=== PATIENT | female | born 1940 | race Caucasian/White ===

== ENCOUNTER 2019-04-26 20:19 | Emergency (ER) | payer MEDICARE ==
--- OUTSIDE RECORDS SUMMARY | 2019-04-26 20:35 | XMS REPORT | Continuity of Care Document ---
:1940 External Reference #:[id number] Author Name Guera Gotti Care Team Providers Name Role Phone Dai Osborn MD Primary Care Physician Unavailable Payers Date Identification Numbers Payment Provider Subscriber Effective: 2012 Policy Number: [id number] Medicare Blue Ppo Mora Felix PayID: [id number] [address] [address] [place] [address] Effective: 2011 Policy Number: [id number] Medicare Blue Ppo Mora Felix Expires: 2012 Group Name: [employer] [address] [address] PayID: [id number] [place] [id number] Problems Active Problems Provider Date Type 2 diabetes mellitus Dai Osborn M.D. Onset: 12/01/2009 Benign essential hypertension Dai Osborn M.D. Onset: 12/01/2009 Hypothyroidism Dai Osborn M.D. Onset: 12/01/2009 Left bundle branch block Mei Tena M.D. Onset: 03/15/2014 Pure hypercholesterolemia Mei Tena M.D. Onset: 03/15/2014 FH: Cardiovascular disease Mei Tena M.D. Onset: 03/15/2014 Essential hypertension Dai Osborn M.D. Onset: 09/04/2015 Localized, primary osteoarthritis of the Erumcandelaria Smith M.D. Onset: 04/22/2017 pelvic region and thigh Family History Date Family Member(s) Observation Comments General Coronary Artery Disease (CAD) General Cerebrovascular Accident (CVA) Father Coronary Artery Disease (CAD) Known CAD, CABG, in sleep age 76. : (age 70 Father due to [place] Years) : (age 70 Mother due to Stroke HTN, OA Years) Mother Cerebrovascular Accident 2 CVA's 73 yo of (CVA) CVA. 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 Tobacco Use Start: Unknown Never Smoked Cigarettes ETOH Use Occasionally consumes less than once a alcohol week Tobacco Use Start: Unknown Patient has never smoked Recreational Drug Use Denies Drug Use Smoking Status Reviewed: 04/19/19 Patient has never smoked Exercise Type/Frequency Does not exercise Allergies, Adverse Reactions, Alerts Active Allergies Reaction Severity Comments Date Metformin diarrhea 01/19/2011 Inactive Allergies No Known Drug Allergy 08/06/2010 Medications Active Medications SIG Qnty Indications Ordering Provider Date Torsemide 1 tablet by mouth 30tabs R60.0 [employer], 04/19/2019 10mg Tablets every day M.D. Diabetic Shoes For daily use 1Pair E11.65 [employer], 07/10/2018 M.D. Amoxicillin 4 by mouth one 20caps [employer], 01/31/2018 500mg hour before M.D. Capsules procedure Metoprolol Succinate Take 1/2 by mouth 30tabs Z01.810 Checo Saenz, ER every day DO FACC 25mg Tablets ER 24HR Atorvastatin Calcium 1 by mouth every 90tabs Z01.810 Dai Cotton, day M.D. 40mg Tablets Roller Walker 1 rolling walker 1units M16.12 Erum Smith, 04/22/2017 [facility] M16.11 Levothyroxine Sodium Take One Tablet 90tabs [employer], 04/18/2017 125mcg By Mouth Every M.D. Tablets Day Repaglinide Take 1 Tablet By 270tabs E11.65 Dai Anurag, 01/24/2014 0.5mg Tablets Mouth Before M.D. Lunch And 2 Tablets AT Dinner Aspirin 1 tablet once Dai Anurag, 05/02/[address] daily M.D. Lisinopril Take One Tablet 90tabs [employer], 40mg Tablets By Mouth Every M.D. Day History Medications Pioglitazone HCL Take One 30tabs E11.65 Dai 07/10/2018 - 15mg Tablets Tablet By Regine Osborn 04/19/2019 Mouth Every Day Meloxicam 1 by mouth 14tabs M25.552 Erum Smith, 04/22/2017 - 15mg Tablets every day M.DRadhames 04/23/2017 Metronidazole apply two 45units [facility] 09/04/2015 - 0.75% Cream times a day as Regine Osborn 03/24/2016 needed for facial rash Simvastatin Take One 90tabs Z01.810 [facility] 05/23/2012 - 40mg Tablets Tablet By Regine Osborn 08/09/2017 Mouth AT Bedtime Prandin take 1 tablet 60tabs Dai 01/19/2011 - 0.5mg Tablets twice a day Regine Osborn 01/24/2014 before meals Metformin HCL 1/2 tablet 90tabs 250.00 Dai 12/11/2010 - 500mg Tablets once daily for Regine Osborn 01/19/2011 2 weeks then increase to whole tablet once daily Simvastatin Take [address] [facility] 08/07/2010 - 20mg Tablets By Mouth AT Regine Osborn 05/23/2012 Bedtime Levothyroxine Sodium Take One 90tabs Dai 03/31/2010 - 112mcg Tablet By Regine Osborn 04/18/2017 Tablets Mouth Every Day Lipitor 1 tablet once 90tabs 272.0 Dai - 10mg Tablets daily Regine Osborn 08/07/2010 Levothyroxine Sodium 1 tab PO daily Unknown - 125mcg 03/31/2010 Tablets Aspir-81 1 po qd Unknown - 81mg Tablets DR 05/02/2010 Fish Oil 1 po qd Unknown - 1000mg Capsules 07/28/2017 Ferrous Gluconate 1 by mouth Unknown - 324(37.5Fe) twice a day 07/10/2018 mg Tablets Hydrochlorothiazide Take One 90tabs R60.0 Dai - 25mg Tablet By Regine Osborn 04/19/2019 Tablets Mouth Every Day Medications Administered in Office Medication SIG Qnty Indications Ordering Provider Date Technetium TC 99M Ica Nuclear Schedule 07/21/2017 Tetrofosmin, Per Unit Dose Up To 40 Millicuries Injection Inj, Regadenoson, 0.1 MG Checo Saenz, DO FAC 07/19/2017 Injection Technetium TC 99M Checo Saenz, DO FAC 07/19/2017 Tetrofosmin, Per Unit Dose Up To 40 Millicuries Injection Inj, Regadenoson, 0.1 MG Lucas Westfall M.D., 04/01/2014 Injection FACC, FASNC Inj, Regadenoson, 0.1 MG Mei Tena M.D. 04/01/2014 Injection Technetium TC 99M Lucas Westfall M.D., 04/01/2014 Tetrofosmin, Per Unit Dose FAC, ROS Up To 40 Millicuries Injection Technetium TC 99M Mei Tena M.D. 04/01/2014 Tetrofosmin, Per Unit Dose Up To 40 Millicuries Injection Immunizations CPT Code Status Date Vaccine Lot # [id number] Given 07/10/2018 Influenza Virus Vaccine, Quadrivalent, Split, [id number] Preservative Free Q2035 Given 11/23/2017 Afluria Vaccine [id number] Given 08/18/2016 Flu Vaccine NOS 29586 Given 08/10/2016 Pneumococcal Conjugate Vaccine 13 Valent For [id number] Intramuscular Use 02233 Given 09/04/2015 Influenza Virus Vaccine, Quadrivalent, Split, [id number] Preservative Free 27682 Given 07/10/2014 Fluzone High Dose Q2038 Given 07/06/2012 Fluzone Vaccine [id number] 27772 Given 05/18/2011 Influenza Virus 3Yrs & Over 08658 Given 08/07/2010 Influenza Virus 3Yrs & Over 95386 Given 06/20/2009 Influenza Virus 3Yrs & Over 39890 Given 07/31/2008 Influenza Virus 3Yrs & Over 70693 Given 06/23/2006 Pneumonia Vaccine 96110 Given 06/23/2006 Tetanus And Diptheria (Td) For Adult Use Preservative Free 14522 Given 06/23/2006 Tetanus And Diptheria (Td) For Adult Use Preservative Free Vital Signs Date Vital Result Comment 04/19/2019 10:20am Height 62 inches 5'2" Weight 226.00 lb Heart Rate 60 /min BP Systolic 132 mmHg BP Diastolic 78 mmHg O2 % BldC Oximetry 96 % BMI (Body Mass Index) 41.3 kg/m2 08/31/2018 2:16pm Height 62 inches 5'2" Weight 222.12 lb Heart Rate 70 /min BP Systolic Sitting 132 mmHg BP Diastolic Sitting 80 mmHg Pain Level 0 O2 % BldC Oximetry 94 % BMI (Body Mass Index) 40.6 kg/m2 07/10/2018 10:06am Height 62 inches 5'2" Weight 216.00 lb Heart Rate 60 /min BP Systolic Sitting 135 mmHg BP Diastolic Sitting 64 mmHg O2 % BldC Oximetry 96 % BMI (Body Mass Index) 39.5 kg/m2 08/09/2017 10:22am Height 62 inches 5'2" Weight 209.00 lb with shoes Heart Rate 64 /min reg with ectopy BP Systolic 138 mmHg Rue lg cuff BP Diastolic 74 mmHg Rue lg cuff BP Systolic Sitting 128 mmHg Lue lg cuff BP Diastolic Sitting 74 mmHg Lue lg cuff BP Systolic Standing 130 mmHg Lue lg cuff BP Diastolic Standing 90 mmHg Lue lg cuff Respiratory Rate 16 /min BMI (Body Mass Index) 38.2 kg/m2 Ejection Fraction 50-55% date 06/09/16 ECHO 07/28/2017 10:42am Height 62.5 inches 5'2.50" Weight 208.50 lb Heart Rate 74 /min BP Systolic 126 mmHg BP Diastolic 66 mmHg Body Temperature 98.6 F O2 % BldC Oximetry 97 % BMI (Body Mass Index) 37.5 kg/m2 06/21/2017 1:06pm Height 62.5 inches 5'2.50" Weight 210.50 lb Heart Rate 59 /min BP Systolic 120 mmHg BP Diastolic 78 mmHg Body Temperature 98.0 F O2 % BldC Oximetry 99 % BMI (Body Mass Index) 37.9 kg/m2 04/22/2017 3:09pm Height 62.5 inches 5'2.50" Weight 214.00 lb Heart Rate 76 /min BP Systolic 120 mmHg BP Diastolic 76 mmHg Body Temperature 98.4 F BMI (Body Mass Index) 38.5 kg/m2 04/18/2017 3:09pm Height 62.5 inches 5'2.50" Weight 214.00 lb Heart Rate 64 /min BP Systolic 124 mmHg BP Diastolic 80 mmHg O2 % BldC Oximetry 97 % BMI (Body Mass Index) 38.5 kg/m2 08/10/2016 10:49am Heart Rate 66 /min BP Systolic Sitting 128 mmHg BP Diastolic Sitting 76 mmHg Respiratory Rate 15 /min Body Temperature 98.3 F O2 % BldC Oximetry 98 % 05/10/2016 11:39am Weight 214.00 lb Heart Rate 64 /min BP Systolic Sitting 126 mmHg BP Diastolic Sitting 80 mmHg Respiratory Rate 15 /min Body Temperature 98.6 F O2 % BldC Oximetry 98 % 09/04/2015 11:02am Height 62 inches 5'2" Weight 213.00 lb Heart Rate 62 /min BP Systolic Sitting 124 mmHg BP Diastolic Sitting 74 mmHg Respiratory Rate 14 /min Body Temperature 98.3 F O2 % BldC Oximetry 97 % BMI (Body Mass Index) 39.0 kg/m2 02/20/2015 10:50am Height 62 inches 5'2" Weight 206.00 lb Heart Rate 74 /min BP Systolic 138 mmHg BP Diastolic 68 mmHg Body Temperature 98.9 F BMI (Body Mass Index) 37.7 kg/m2 08/22/2014 10:24am Height 62 inches 5'2" Weight 207.75 lb Heart Rate 77 /min BP Systolic Sitting 138 mmHg BP Diastolic Sitting 70 mmHg Body Temperature 96.8 F O2 % BldC Oximetry 97 % BMI (Body Mass Index) 38.0 kg/m2 05/21/2014 4:04pm Weight 206.00 lb Heart Rate 66 /min BP Systolic Sitting 130 mmHg BP Diastolic Sitting 70 mmHg Body Temperature 97.9 F 04/17/2014 9:07am Height 62 inches 5'2" Weight 208.00 lb Heart Rate 72 /min BP Systolic Sitting 132 mmHg LA large cuff BP Diastolic Sitting 78 mmHg LA large cuff BP Systolic Standing 130 mmHg LA BP Diastolic Standing 82 mmHg LA Respiratory Rate 18 /min BMI (Body Mass Index) 38.0 kg/m2 03/15/2014 2:57pm Height 62 inches 5'2" Weight 209.00 lb Heart Rate 68 /min BP Systolic 144 mmHg Ra large cuff BP Diastolic 72 mmHg Ra large cuff BP Systolic Sitting 140 mmHg LA large cuff BP Diastolic Sitting 70 mmHg LA large cuff BP Systolic Standing 140 mmHg LA BP Diastolic Standing 72 mmHg LA Respiratory Rate 16 /min BMI (Body Mass Index) 38.2 kg/m2 02/15/2014 11:21am Height 62 inches 5'2" Weight 207.50 lb Heart Rate 72 /min BP Systolic 122 mmHg BP Diastolic 78 mmHg Respiratory Rate 18 /min Body Temperature 98.6 F BMI (Body Mass Index) 37.9 kg/m2 05/08/2013 1:16pm Weight 208.00 lb Heart Rate 64 /min BP Systolic Sitting 120 mmHg BP Diastolic Sitting 78 mmHg 11/07/2012 1:23pm Height 62 inches 5'2" Weight 207.00 lb Heart Rate 72 /min BP Systolic Sitting 128 mmHg BP Diastolic Sitting 76 mmHg BMI (Body Mass Index) 37.9 kg/m2 07/06/2012 10:42am Height 62 inches 5'2" Weight 205.00 lb Heart Rate 70 /min BP Systolic Sitting 128 mmHg BP Diastolic Sitting 76 mmHg BMI (Body Mass Index) 37.5 kg/m2 05/23/2012 11:22am Height 62 inches 5'2" Weight 206.00 lb Heart Rate 68 /min BP Systolic Sitting 128 mmHg BP Diastolic Sitting 80 mmHg BMI (Body Mass Index) 37.7 kg/m2 10/05/2011 10:37am Height 62 inches 5'2" Weight 209.00 lb Heart Rate 70 /min BP Systolic Sitting 128 mmHg BP Diastolic Sitting 74 mmHg BMI (Body Mass Index) 38.2 kg/m2 07/05/2011 10:05am Height 62 inches 5'2" Weight 208.00 lb Heart Rate 68 /min BP Systolic Sitting 132 mmHg BP Diastolic Sitting 84 mmHg BMI (Body Mass Index) 38.0 kg/m2 04/01/2011 11:48am Height 62 inches 5'2" Weight 206.50 lb Heart Rate 68 /min BP Systolic 142 mmHg BP Diastolic 78 mmHg BMI (Body Mass Index) 37.8 kg/m2 12/11/2010 10:19am Weight 204.50 lb Heart Rate 68 /min BP Systolic 124 mmHg BP Diastolic 74 mmHg 08/07/2010 9:28am Weight 206.50 lb Heart Rate 62 /min BP Systolic 124 mmHg BP Diastolic 80 mmHg 05/05/2010 7:06pm Weight 200.50 lb Heart Rate 60 /min BP Systolic 144 mmHg BP Diastolic 78 mmHg Results Test Date Facility Test Result H/L Range Note Laboratory test 04/19/2019 [facility] Hemoglobin A1c 7.0 5-7 finding Order 04/19/2019 [facility] In-House EKG <pending> Lipid Profile 07/05/2018 [facility] Triglycerides 199 mg/dL 1 (Trig/Chol/HDL) [address] [place] [address] [phone] Cholesterol 155 mg/dL 2 HDL Cholesterol 34.1 mg/dL 3 LDL Cholesterol 81 mg/dL 4 Comp Metabolic Panel 07/05/2018 [facility] Sodium 139 mmol/L N 135-[address] [place] [address] [phone] Potassium 4.6 mmol/L N 3.5-5.0 Chloride 104 mmol/L N 101-111 Co2 Carbon Dioxide 25 mmol/L N 22-32 Anion Gap 10 mmol/L N 2-11 Calcium 9.3 mg/dL N 8.6-10.3 Albumin 4.1 g/dL N 3.2-5.2 Total Bilirubin 0.60 mg/dL N 0.2-1.0 Glucose 199 mg/dL High 70-100 Blood Urea Nitrogen 36 mg/dL High 6-24 Creatinine 1.19 mg/dL High 0.51-0.95 BUN/Creatinine Ratio 30.3 High 8-20 Total Protein 6.7 g/dL N 6.4-8.9 Globulin 2.6 g/dL N 2-4 Albumin/Globulin Ratio 1.6 N 1-3 Alkaline Phosphatase 92 U/L N 34-104 Alt 17 U/L N 7-52 Ast 19 U/L N 13-39 Egfr Non- 43.9 >60 Egfr 53.1 >60 5 Laboratory test 07/05/2018 [facility] Hemoglobin A1c 8.7 % High 4.0-5.[address] (Glyco HGB) [place] [address] [phone] Urine 07/05/2018 [facility] Ur Microalbumin < 15.[address] (mg/L) [place] [address] [phone] Urine Creatinine 35.03 mg/dL Urine Microalbumin/Creatinine TNP <31 7 CBC Auto Diff 07/05/2018 [facility] White Blood 6.4 10^3/uL N 3.5-10.[address] [place] [address] [phone] Red Blood Count 3.97 10^6/uL Low 4.00-5.40 Hemoglobin 12.1 g/dL N 12.0-16.0 Hematocrit 37 % N 35-47 Mean Corpuscular Volume 92 fL N 80-97 Mean Corpuscular Hemoglobin 31 pg N 27-31 Mean Corpuscular HGB Conc 33 g/dL N 31-36 Red Cell Distribution Width 14 % N 10.5-15 Platelet Count 282 10^3/uL N 150-450 Mean Platelet Volume 8.0 um3 N 7.4-10.4 Abs Neutrophils 3.8 10^3/uL N 1.5-7.7 Abs Lymphocytes 1.6 10^3/uL N 1.0-4.8 Abs Monocytes 0.7 10^3/uL N 0-0.8 Abs Eosinophils 0.3 10^3/uL N 0-0.6 Abs Basophils 0 10^3/uL N 0-0.2 Abs Nucleated RBC 0 10^3/uL Granulocyte % 59.2 % N 38-83 Lymphocyte % 24.7 % Low 25-47 Monocyte % 10.2 % High 0-7 Eosinophil % 5.3 % N 0-6 Basophil % 0.6 % N 0-2 Nucleated Red Blood Cells % 0.1 Arthritis Panel 07/05/2018 [facility] Uric Acid 10.4 mg/dL High 2.3-6.[address] [place] [address] [phone] Rheumatoid Factor < 10 IU/mL N <15 Erythrocyte Sed Rate 47 mm/Hr High 0-40 Anti-Nuclear Antibody 0.5 U 8 Cyclic Citrullinated Peptide <15.6 U 9 Interpretation See Comment 10 Laboratory test 07/05/2018 [facility] Cyclic Citrullinated < 15.6 U [address] [place] [address] [phone] C Reactive Protein 7.28 mg/L N <8.01 12 TSH (Thyroid Stim Horm) 2.73 mcIU/mL N 0.34-5.60 13 Protein 07/21/2017 [facility] Total 7.4 g/dL N 6.3 - Electrophoresis [address] Protein(Pep) 7.9 [place] [address] [phone] Albumin 3.4 g/dL N 3.4-4.7 Alpha-1 Globulin 0.3 g/dL N 0.1-0.3 Alpha-2 Globulin 1.3 g/dL Abnormal 0.6-1.0 Beta Globulin 1.2 g/dL N 0.7-1.2 Gamma Globulin 1.3 g/dL N 0.6-1.6 Albumin/Globulin Ratio 0.84 N Impression See Comment N 14 Laboratory test finding 07/21/2017 [facility] LDH 195 U/L N 140-[address] [place] [address] [phone] C Reactive Protein 9.99 mg/L High < 5.00 15 Folic Acid (Folate) 12.55 ng/mL N >3.99 Vitamin B12 314 pg/mL N 180-914 16 Hemoglobin A1c (Glyco HGB) 7.7 % High Less than 6.0 17 Comp Metabolic Panel 07/21/2017 [facility] Sodium 138 mmol/L N 133-[address] [place] [address] [phone] Chloride 102 mmol/L N 101-111 Co2 Carbon Dioxide 26 mmol/L N 22-32 Glucose 189 mg/dL High 70-100 Blood Urea Nitrogen 41 mg/dL High 6-24 Creatinine 1.55 mg/dL High 0.51-0.95 BUN/Creatinine Ratio 26.5 High 8-20 Calcium 9.3 mg/dL N 8.6-10.3 Total Protein 7.2 g/dL N 6.4-8.9 Albumin 4.0 g/dL N 3.2-5.2 Globulin 3.2 g/dL N 2-4 Albumin/Globulin Ratio 1.3 N 1-3 Total Bilirubin 0.50 mg/dL N 0.2-1.0 Alkaline Phosphatase 68 U/L N 34-104 Alt 10 U/L N 7-52 Ast 12 U/L Low 13-39 Egfr Non- 32.4 N >60 Egfr 41.7 N >60 18 Potassium 5.2 mmol/L High 3.5-5.0 Anion Gap 10 mmol/L N 2-11 Laboratory test 07/21/2017 [facility] TSH (Thyroid 2.79 mcIU/mL N 0.34-5.[address] Stim Horm) [place] [address] [phone] Laboratory test 07/05/2017 [facility] Ferritin 167.4 ng/mL N 11-307 [address] [place] [address] [phone] Iron & Iron 07/05/2017 [facility] Iron 53 g/dL N 50-[address] [place] [address] [phone] Unsaturated Iron Binding 301 g/dL N Total Iron Binding Capacity 354 g/dL N 250-450 % Iron Saturation 15 % N 15-55 Laboratory test 07/05/2017 [facility] Albumin 3.9 g/dL N 3.2- 5.[address] [place] [address] [phone] CBC Auto Diff 07/05/2017 [facility] White Blood 7.0 N 3.5- 10.[address] Count 10^3/[place] [address] [phone] Red Blood Count 3.72 10^6/uL Low 4.0-5.4 Hemoglobin 11.0 g/dL Low 12.0-16.0 Hematocrit 34 % Low 35-47 Mean Corpuscular Volume 91 fL N 80-97 Mean Corpuscular Hemoglobin 30 pg N 27-31 Mean Corpuscular HGB Conc 33 g/dL N 31-36 Red Cell Distribution Width 14 % N 10.5-15 Platelet Count 294 10^3/uL N 150-450 Mean Platelet Volume 8 um3 N 7.4-10.4 Abs Neutrophils 4.7 10^3/uL N 1.5-7.7 Abs Lymphocytes 1.3 10^3/uL N 1.0-4.8 Abs Monocytes 0.5 10^3/uL N 0-0.8 Abs Eosinophils 0.5 10^3/uL N 0-0.6 Abs Basophils 0.1 10^3/uL N 0-0.2 Abs Nucleated RBC 0 10^3/uL N Granulocyte % 67.1 % N 38-83 Lymphocyte % 19.2 % Low 25-47 Monocyte % 6.5 % N 1-9 Eosinophil % 6.5 % High 0-6 Basophil % 0.7 % N 0-2 Nucleated Red Blood Cells % 0 N Laboratory test 04/15/2017 [facility] TSH (Thyroid 7.19 High 0.34-5.[address] Stim Horm) mcIU/[place] [address] [phone] Urine 04/15/2017 [facility] Urine 44.99 N Microalbumin [address] Creatinine mg/dL Random [place], [place] [id number] [phone] Ur Microalbumin (mg/L) < 15.0 mg/L N Urine Microalbumin/Creatinine TNP ug/mg N <31 21 Laboratory test 04/15/2017 [facility] Hemoglobin A1c 8.1 % High Less than [address] (Glyco HGB) 6.0 [place] [address] [phone] Comp Metabolic 04/15/2017 [facility] Sodium 136 N 133-[address] mmol/[place] [address] [phone] Potassium 4.8 mmol/L N 3.5-5.0 Chloride 103 mmol/L N 101-111 Co2 Carbon Dioxide 23 mmol/L N 22-32 Anion Gap 10 mmol/L N 2-11 Glucose 181 mg/dL High 70-100 Blood Urea Nitrogen 42 mg/dL High 6-24 Creatinine 1.32 mg/dL High 0.51-0.95 BUN/Creatinine Ratio 31.8 High 8-20 Calcium 8.9 mg/dL N 8.6-10.3 Total Protein 6.4 g/dL N 6.4-8.9 Albumin 4.0 g/dL N 3.2-5.2 Globulin 2.4 g/dL N 2-4 Albumin/Globulin Ratio 1.7 N 1-3 Total Bilirubin 0.60 mg/dL N 0.2-1.0 Alkaline Phosphatase 69 U/L N 34-104 Alt 13 U/L N 7-52 Ast 13 U/L N 13-39 Egfr Non- 39.1 N >60 Egfr 50.3 N >60 23 Lipid Profile 04/15/2017 [facility] Triglycerides 248 mg/dL N 24 (Trig/Chol/HDL) [address] [place] [address] [phone] Cholesterol 164 mg/dL N 25 HDL Cholesterol 36.1 mg/dL N 26 LDL Cholesterol 78 mg/dL N 27 Laboratory test 08/10/2016 [facility] Hemoglobin A1c 7.5 High 5-7 finding Comp Metabolic 05/05/2016 [facility] Sodium 136 mmol/L N 133- [address] [place] [address] [phone] Potassium 4.9 mmol/L N 3.5-5.0 Chloride 104 mmol/L N 101-111 Co2 Carbon Dioxide 25 mmol/L N 22-32 Anion Gap 7 mmol/L N 2-11 Glucose 160 mg/dL High 70-100 Blood Urea Nitrogen 42 mg/dL High 6-24 Creatinine 1.34 mg/dL High 0.51-0.95 BUN/Creatinine Ratio 31.3 High 8-20 Calcium 8.9 mg/dL N 8.6-10.3 Total Protein 6.6 g/dL N 6.4-8.9 Albumin 4.1 g/dL N 3.2-5.2 Globulin 2.5 g/dL N 2-4 Albumin/Globulin Ratio 1.6 N 1-3 Total Bilirubin 0.50 mg/dL N 0.2-1.0 Alkaline Phosphatase 63 U/L N 34-104 Alt 15 U/L N 7-52 Ast 15 U/L N 13-39 Egfr Non- 38.5 N >60 Egfr 49.5 N >60 28 Lipid Profile 05/05/2016 [facility] Triglycerides 262 mg/dL N 29 (Trig/Chol/HDL) [address] [place] [address] [phone] Cholesterol 171 mg/dL N 30 HDL Cholesterol 32.2 mg/dL N 31 LDL Cholesterol 86 mg/dL N 32 Laboratory test 05/05/2016 [facility] Hemoglobin A1c 7.7 % High Less [address] (Glyco HGB) than 6.[address] [place] [address] [phone] Urine 09/01/2015 [facility] Ur Microalbumin < 5.0 N Microalbumin [address] (mg/L) mg/[place] [address] [phone] Urine Creatinine 23.46 mg/dL N Urine Microalbumin/Creatinine TNP ug/mg N <31 34 Laboratory test 09/01/2015 [facility] Hemoglobin A1c 7.0 % High Less than [address] (Glyco HGB) 6.[address] [place] [address] [phone] TSH (Thyroid Stim Horm) 2.58 ?IU/mL N 0.34-5.60 Comp Metabolic Panel 09/01/2015 [facility] Sodium 135 mmol/L N 133-[address] [place] [address] [phone] Potassium 4.3 mmol/L N 3.5-5.0 Chloride 103 mmol/L N 101-111 Co2 Carbon Dioxide 24 mmol/L N 22-32 Anion Gap 8 mmol/L N 2-11 Glucose 123 mg/dL High 70-100 Blood Urea Nitrogen 43 mg/dL High 6-24 Creatinine 1.32 mg/dL High 0.51-0.95 BUN/Creatinine Ratio 32.6 High 8-20 Calcium 9.2 mg/dL N 8.6-10.3 Total Protein 6.7 g/dL N 6.4-8.9 Albumin 4.3 g/dL N 3.2-5.2 Globulin 2.4 g/dL N 2-4 Albumin/Globulin Ratio 1.8 N 1-3 Total Bilirubin 0.50 mg/dL N 0.2-1.0 Alkaline Phosphatase 64 U/L N 34-104 Alt 12 U/L N 7-52 Ast 13 U/L N 13-39 Egfr Non- 39.2 N >60 Egfr 50.5 N >60 36 Total Protein 24HR Urine 02/17/2015 Urine Random Total Protein < 6 mg/dL N 37 Urine Total Protein/24HR (SEE NOTE) mg/24Hr N 0-165 38 Urine Collection Time 24 N Urine Total Volume 1500 mL N Creatinine Clearance 02/17/2015 Urine Random Creatinine 91.41 mg/dL N Creatinine 1.20 mg/dL High 0.51-0.95 Creatinine Clearance 79 mL/min Low 88-128 Urine Collection Time 24 N Urine Total Volume 1500 mL N Lipid Profile 02/14/2015 [facility] Triglycerides 227 mg/dL N 39, 40 (Trig/Chol/HDL) [address] [place] [address] [phone] Cholesterol 184 mg/dL N 41 HDL Cholesterol 41.7 mg/dL N 42 LDL Cholesterol 97 mg/dL N 43 Laboratory test 02/14/2015 [facility] Hemoglobin A1c 7.3 % High Less than [address] 6[address] [place] [address] [phone] Comp Metabolic 02/14/2015 [facility] Sodium 136 N 133-[address] mmol/[place] [address] [phone] Potassium 4.3 mmol/L N 3.5-5.0 Chloride 101 mmol/L N 101-111 Co2 Carbon Dioxide 28 mmol/L N 22-32 Anion Gap 7 mmol/L N 2-11 Glucose 157 mg/dL High 70-100 Blood Urea Nitrogen 25 mg/dL High 6-24 Creatinine 1.16 mg/dL High 0.51-0.95 BUN/Creatinine Ratio 21.6 High 8-20 Calcium 9.2 mg/dL N 8.6-10.3 Total Protein 6.7 g/dL N 6.4-8.9 Albumin 4.4 g/dL N 3.2-5.2 Globulin 2.3 g/dL N 2-4 Albumin/Globulin Ratio 1.9 N 1-3 Total Bilirubin 0.60 mg/dL N 0.2-1.0 Alkaline Phosphatase 64 U/L N 34-104 Alt 12 U/L N 7-52 Ast 13 U/L N 13-39 Egfr Non- 45.7 N >60 Egfr 58.7 N >60 45 Laboratory test 08/22/2014 [facility] Hemoglobin A1c 6.4 5-7 finding Order 04/01/2014 [facility] Stress Test, <pending> Pharmacologic Nuclear (Lexiscan) Laboratory test 02/11/2014 [facility] TSH (Thyroid 1.70 N 0.34 -5.[address] Stimulating Horm) IU/[place] [address] [phone] Urine Microalbumin 02/11/2014 [facility] Ur Microalbumin 5.0 mg/ dL N <30 [address] (mg/L) [place] [address] [phone] Urine Creatinine 22.91 mg/dL N Urine Microalbumin/Creatinine 21.8 N Less Than 31 Comp Metabolic Panel 02/11/2014 [facility] Sodium 138 mmol/L N 133-[address] [place] [address] [phone] Potassium 4.4 mmol/L N 3.7-5.6 Chloride 104 mmol/L N 101-111 Co2 Carbon Dioxide 27 mmol/L N 22-32 Anion Gap 7 mmol/L N 2-11 Glucose 143 mg/dL High 70-100 Blood Urea Nitrogen 40 mg/dL High 6-24 Creatinine 1.42 mg/dL High 0.51-0.95 BUN/Creatinine Ratio 28.2 High 8-20 Calcium 8.8 mg/dL N 8.6-10.3 Total Protein 6.6 g/dL N 6.4-8.9 Albumin 4.2 g/dL N 3.2-5.2 Globulin 2.4 g/dL N 2-4 Albumin/Globulin Ratio 1.8 N 1-3 Total Bilirubin 0.50 mg/dL N 0.2-1.0 Alkaline Phosphatase 69 U/L N 34-104 Alt 11 U/L N 7-52 Ast 12 U/L Low 13-39 Egfr Non- 36.3 N >60 Egfr 46.6 N >60 47 Lipid Profile 02/11/2014 [facility] Triglycerides 181 mg/dL N 48 (Trig/Chol/HDL) [address] [place] [address] [phone] Cholesterol 144 mg/dL N 49 HDL Cholesterol 34.7 mg/dL N 50 LDL Cholesterol 73 mg/dL N 51 Laboratory test 02/11/2014 [facility] Hemoglobin A1c 6.5 % High Less than [address] [place] [address] [phone] Lipid Profile 05/03/2013 [facility] Triglycerides 263 High 40- 200 (Trig/Chol/HDL) [address] mg/[place] [address] [phone] Cholesterol 160 mg/dL Less than 200 HDL Cholesterol 37 mg/dL Low 40-60 53 Cholesterol/HDL Ratio 4.3 Average 1-4.44 LDL Cholesterol 70.4 Less Than 100 54 Comp Metabolic Panel 05/03/2013 [facility] Sodium 137 mmol/L 133-[address] [place] [address] [phone] Potassium 4.8 mmol/L 3.5-5.0 Chloride 103 mmol/L 101-111 Co2 Carbon Dioxide 26.0 mmol/L 22-32 Anion Gap 8.0 mmol/L 2-11 Glucose 139 mg/dL High 70-100 Blood Urea Nitrogen 34 mg/dL High 6-24 Creatinine 1.30 mg/dL 0.50-1.40 BUN/Creatinine Ratio 26.2 High 8-20 Calcium 9.0 mg/dL 8.1-9.9 Total Protein 6.4 g/dL 6.2-8.1 Albumin 3.9 g/dL 3.2-5.2 Globulin 2.5 g/dL 2-4 Albumin/Globulin Ratio 1.6 1-3 Total Bilirubin 0.8 mg/dL 0.4-1.5 Alkaline Phosphatase 67 U/L 30-110 Alt 18 U/L 14-54 Ast 18 U/L 12-42 Egfr Non- 40.2 >60 Egfr 51.6 >60 55 Laboratory test 05/03/2013 [facility] Hemoglobin A1c 6.7 % High Less [address] [place] [address] [phone] Urine 05/03/2013 [facility] Ur Microalbumin 2.0 [address] (mg/L) mg/[place] [address] [phone] Urine Creatinine 56.5 mg/dL Urine Microalbumin/Creatinine 3.5 Less Than 31 Laboratory test 11/07/2012 [facility] In House Hemoglobin A1c 6.7 5-7 finding Lipid Profile 07/04/2012 [facility] Triglyceride 268 mg/dL High 40-200 (Trig/Chol/HDL) [address] [place] [address] [phone] Cholesterol 176 mg/dL Less Than 200 58 High Density Lipoprotein 37 mg/dL Low 40-60 59 Cholesterol/HDL Ratio 4.76 AVERAGE High 1-4.44 Low Density Lipoprotein 85 mg/dL Less Than 100 60 Laboratory test finding 07/04/2012 [facility] Ast (Sgot) 24 U/L 12-[address] [place] [address] [phone] Alt (SGPT) 24 U/L 14-54 TSH 0.56 MIU/ML 0.34-5.60 Urine Microalbumin 05/19/2012 [facility] Microalbumin (MG/L) 2.0 mg/L Random [address] [place] [address] [phone] Urine Creatinine 51.2 mg/dL Dennis Alb/Creatinine Ratio 3.9 UG/MG Less Than 30 61 Lipid Panel 05/19/2012 [facility] Triglyceride 285 mg/dL High 40-[address] [place] [address] [phone] Cholesterol 195 mg/dL Less Than 200 62 High Density Lipoprotein 37 mg/dL Low 40-60 63 Cholesterol/HDL Ratio 5.27 AVERAGE High 1-4.44 Low Density Lipoprotein 101 mg/dL High Less Than 100 64 CMP Panel 05/19/2012 [facility] Sodium 138 mmol/L 135-[address] [place] [address] [phone] Potassium 4.4 mmol/L 3.5-5.0 Chloride 105 mmol/L 101-111 Co2 (Carbon Dioxide) 26.0 mmol/L 22-32 Anion Gap 7.0 mmol/L 2-11 65 Glucose 131 mg/dL High 70-100 BUN 27 mg/dL High 6-24 Creatinine 1.4 mg/dL 0.50-1.40 One Over Creatinine 0.71 BUN/Creatinine Ratio 19.3 8-20 Calcium 9.0 mg/dL 8.1-9.9 Total Protein 5.9 GM/DL Low 6.2-8.1 Albumin 3.8 GM/DL 3.2-5.2 Globulin 2.1 GM/DL 2-4 Albumin/Globulin Ratio 1.8 1-3 Bilirubin Total 0.8 mg/dL 0.4-1.5 66 Alkaline Phosphatase 73 U/L 30-110 Alt (SGPT) 20 U/L 14-54 Ast (Sgot) 21 U/L 12-42 eGFR Non- 37.0 > 60 eGFR 47.5 > 60 67 Laboratory test 05/19/2012 [facility] Hemoglobin A1c 6.5 % High Less Than [address] [place] [address] [phone] Laboratory test 09/27/2011 [facility] Hemoglobin A1c 6.7 % High Less Than [address] [place] [address] [phone] Comp Metabolic 09/27/2011 [facility] Sodium 139 135-[address] mmol/[place] [address] [phone] Potassium 4.4 mmol/L 3.5-5.0 Chloride 106 mmol/L 101-111 Co2 (Carbon Dioxide) 26.0 mmol/L 22-32 Anion Gap 7.0 mmol/L 2-11 70 Glucose 167 mg/dL High 70-100 BUN 30 mg/dL High 6-24 Creatinine 1.2 mg/dL 0.50-1.40 One Over Creatinine 0.83 BUN/Creatinine Ratio 25.0 High 8-20 Calcium 9.0 mg/dL 8.1-9.9 Total Protein 6.3 GM/DL 6.2-8.1 Albumin 4.0 GM/DL 3.2-5.2 Globulin 2.3 GM/DL 2-4 Albumin/Globulin Ratio 1.7 1-3 Bilirubin Total 0.6 mg/dL 0.4-1.5 71 Alkaline Phosphatase 80 U/L 30-110 Alt (SGPT) 19 U/L 14-54 Ast (Sgot) 21 U/L 12-42 eGFR Non- 44.3 > 60 eGFR 57.0 > 60 72 Surgical 08/12/2011 [facility] Surgical [address] Pathology <SEE NOTE> [place] [address] [phone] Basic 05/25/2011 [facility] Sodium 139 mmol/L 135- Metabolic [address] [place] [address] [phone] Potassium 4.5 mmol/L 3.5-5.0 Chloride 105 mmol/L 101-111 Co2 (Carbon Dioxide) 26.0 mmol/L 22-32 Anion Gap 8.0 mmol/L 2-11 74 Glucose 91 mg/dL 70-100 BUN 28 mg/dL High 6-24 Creatinine 1.10 mg/dL 0.50-1.40 One Over Creatinine 0.90 BUN/Creatinine Ratio 25.5 High 8-20 Calcium 9.1 mg/dL 8.1-9.9 eGFR Non- 49.0 > 60 eGFR 63.0 > 60 75 Urine Microalbumin 03/30/2011 [facility] Microalbumin (MG/L) 2.0 mg/L Random [address] [place] [address] [phone] Urine Creatinine 31.44 mg/dL Dennis Alb/Creatinine Ratio 6.3 UG/MG Less Than 30 76 Laboratory test 03/30/2011 [facility] Creatinine 31.44 mg/dL finding [address] [place] [place] [address] [phone] Comp Metabolic 03/29/2011 [facility] Sodium 141 mmol/L 135- [address] [place] [address] [phone] Potassium 4.6 mmol/L 3.5-5.0 Chloride 108 mmol/L 101-111 Co2 (Carbon Dioxide) 26.0 mmol/L 22-32 Anion Gap 7.0 mmol/L 2-11 77 Glucose 146 mg/dL High 70-100 BUN 32 mg/dL High 6-24 Creatinine 1.50 mg/dL High 0.50-1.40 One Over Creatinine 0.60 BUN/Creatinine Ratio 21.3 High 8-20 Calcium 8.9 mg/dL 8.1-9.9 Total Protein 6.4 GM/DL 6.2-8.1 Albumin 3.9 GM/DL 3.2-5.2 Globulin 2.5 GM/DL 2-4 Albumin/Globulin Ratio 1.6 1-3 Bilirubin Total 0.7 mg/dL 0.4-1.5 78 Alkaline Phosphatase 67 U/L 30-110 Alt (SGPT) 18 U/L 14-54 Ast (Sgot) 22 U/L 12-42 eGFR Non- 34.3 > 60 eGFR 44.1 > 60 79 Lipid Profile 03/29/2011 [facility] Triglyceride 203 mg/dL High 40-200 (Trig/Chol/HDL) [address] [place] [address] [phone] Cholesterol 176 mg/dL Less Than 200 80 High Density Lipoprotein 36 mg/dL Low 40-60 81 Cholesterol/HDL Ratio 4.89 AVERAGE High 1-4.44 Low Density Lipoprotein 99 mg/dL Less Than 100 82 Laboratory test 03/29/2011 [facility] TSH 2.38 MIU/ML 0.34- 5.[address] [place] [address] [phone] Hemoglobin A1c 6.6 % High Less Than 6.0 83 Comp Metabolic Panel 12/07/2010 [facility] Sodium 141 mmol/L 135-[address] [place] [address] [phone] Potassium 4.9 mmol/L 3.5-5.0 Chloride 103 mmol/L 101-111 Co2 (Carbon Dioxide) 30.0 mmol/L 22-32 Anion Gap 8.0 mmol/L 2-11 84 Glucose 143 mg/dL High 70-100 BUN 31 mg/dL High 6-24 Creatinine 1.30 mg/dL 0.50-1.40 One Over Creatinine 0.70 BUN/Creatinine Ratio 23.8 High 8-20 Calcium 9.1 mg/dL 8.1-9.9 Total Protein 6.8 GM/DL 6.2-8.1 Albumin 4.1 GM/DL 3.2-5.2 Globulin 2.7 GM/DL 2-4 Albumin/Globulin Ratio 1.5 1-3 Bilirubin Total 0.8 mg/dL 0.4-1.5 85 Alkaline Phosphatase 75 U/L 30-110 Alt (SGPT) 21 U/L 14-54 Ast (Sgot) 20 U/L 12-42 eGFR Non- 40.5 > 60 eGFR 52.1 > 60 86 Lipid Profile 12/07/2010 [facility] Triglyceride 239 mg/dL High 40-200 (Trig/Chol/HDL) [address] [place] [address] [phone] Cholesterol 163 mg/dL Less Than 200 87 High Density Lipoprotein 38 mg/dL Low 40-60 88 Cholesterol/HDL Ratio 4.29 AVERAGE 1-4.44 Low Density Lipoprotein 77 mg/dL Less Than 100 89 Laboratory test 12/07/2010 [facility] Hemoglobin A1c 7.0 % High Less [address] [place] [address] [phone] Laboratory test 07/31/2010 [facility] Hemoglobin A1c 7.0 % High Less [address] [place] [address] [phone] Urine 2010 [facility] Microalbumin < 2.[address] (MG/L) mg/[place] [address] [phone] Urine Creatinine 77.17 mg/dL 92 Laboratory test 2010 [facility] Hemoglobin A1c 7.0 % High Less Than [address] [place] [address] [phone] Lipid Profile 2010 [facility] Triglyceride 253 High 40- 200 (Trig/Chol/HDL) [address] mg/[place] [address] [phone] Cholesterol 194 mg/dL Less Than 200 94 High Density Lipoprotein 33 mg/dL Low 40-60 95 Cholesterol/HDL Ratio 5.88 AVERAGE High 1-4.44 Low Density Lipoprotein 110 mg/dL High Less Than 100 96 Comp Metabolic Panel 2010 [facility] Sodium 139 mmol/L 135-[address] [place] [address] [phone] Potassium 4.6 mmol/L 3.5-5.0 Chloride 103 mmol/L 101-111 Co2 (Carbon Dioxide) 29.0 mmol/L 22-32 Anion Gap 7.0 mmol/L 2-11 97 Glucose 144 mg/dL High 70-100 98 BUN 22 mg/dL 6-24 Creatinine 1.10 mg/dL 0.50-1.40 One Over Creatinine 0.90 BUN/Creatinine Ratio 20.0 8-20 Calcium 9.5 mg/dL 8.1-9.9 99 Total Protein 6.7 GM/DL 6.2-8.1 Albumin 4.0 GM/DL 3.2-5.2 Globulin 2.7 GM/DL 2-4 Albumin/Globulin Ratio 1.5 1-3 Bilirubin Total 1.1 mg/dL 0.4-1.5 100 Alkaline Phosphatase 84 U/L 30-110 Alt (SGPT) 21 U/L 14-54 Ast (Sgot) 22 U/L 12-42 eGFR Non- 52.2 > 60 eGFR 63.1 > 60 101 1 Desirable: <150 Borderline High: 150-199 High: 200-499 Very High: >500 2 Desirable: <200 Borderline High: 200-239 High: >239 3 Low: <40 Desirable: 40-60 High: >60 4 Desirable: <100 Near Optimal: 100-129 Borderline High: 130-159 High: 160-189 Very High: >189 5 Because ethnic data is not always readily available, this report includes an eGFR for both -Americans and non- Americans. The National Kidney Disease Education Program (NKDEP) does not endorse the use of the MDRD equation for patients that are not between the ages of 18 and 70, are , have extremes of body size, muscle mass, or nutritional status, or are non- or non-. According to the National Kidney Foundation, irrespective of diagnosis, the stage of the disease is based on the level of kidney function: Stage Description GFR(mL/min/1.73 m(2)) 1 Kidney damage with normal or decreased GFR 90 2 Kidney damage with mild decrease in GFR 60-89 3 Moderate decrease in GFR 30-59 4 Severe decrease in GFR 15-29 5 Kidney failure <15 (or dialysis) 6 Therapeutic target for the treatment of diabetes mellitus patients is <7% HBA1C, and in selective patients <6.0%. Please refer to [place] [employer] diabetic care guidelines for further information. 7 Unable to calculate due to low microalbumin 8 REFERENCE VALUE <=1.0 (Negative) 9 REFERENCE VALUE <20.0 (Negative) 10 Tests for antibodies to dsDNA and ERIN antigens are not performed automatically unless the JESSENIA result is > or= 3.0 U. Studies performed at [facility] indicate that positive JESSENIA results <3.0 U are rarely accompanied by positive second order tests. Test Performed by: [address] [address] 11 REFERENCE VALUE <20.0 (Negative) Test Performed by: [address] [address] 12 FASTING 10 HOUR 13 FASTING 10 HOUR 14 RESULT: No apparent monoclonal protein on serum electrophoresis. Test Performed by: [address] [address] 15 Acute inflammation: >10.00 16 Normal Range 180 to 914 Indeterminate Range 145 to 180 Deficient Range <145 17 Therapeutic target for the treatment of diabetes Mellitus patients is <7% HBA1C, and in selective patients <6.0%.Please refer to [place] [employer] Diabetic care guidelines for further information. 18 Because ethnic data is not always readily available, this report includes an eGFR for both -Americans and non- Americans. The National Kidney Disease Education Program (NKDEP) does not endorse the use of the MDRD equation for patients that are not between the ages of 18 and 70, are , have extremes of body size, muscle mass, or nutritional status, or are non- or non-. According to the National Kidney Foundation, irrespective of diagnosis, the stage of the disease is based on the level of kidney function: Stage Description GFR(mL/min/1.73 m(2)) 1 Kidney damage with normal or decreased GFR 90 2 Kidney damage with mild decrease in GFR 60-89 3 Moderate decrease in GFR 30-59 4 Severe decrease in GFR 15-29 5 Kidney failure <15 (or dialysis) 19 CANCEL HA1C PER PT 20 CANCEL HA1C PER PT 21 Unable to calculate due to low microalbumin 22 Therapeutic target for the treatment of diabetes Mellitus patients is <7% HBA1C, and in selective patients <6.0%.Please refer to [place] [employer] Diabetic care guidelines for further information. 23 Because ethnic data is not always readily available, this report includes an eGFR for both -Americans and non- Americans. The National Kidney Disease Education Program (NKDEP) does not endorse the use of the MDRD equation for patients that are not between the ages of 18 and 70, are , have extremes of body size, muscle mass, or nutritional status, or are non- or non-. According to the National Kidney Foundation, irrespective of diagnosis, the stage of the disease is based on the level of kidney function: Stage Description GFR(mL/min/1.73 m(2)) 1 Kidney damage with normal or decreased GFR 90 2 Kidney damage with mild decrease in GFR 60-89 3 Moderate decrease in GFR 30-59 4 Severe decrease in GFR 15-29 5 Kidney failure <15 (or dialysis) 24 Desirable <150 Borderline high 150-199 High 200-499 Very High >500 25 Desirable <200 Borderline high 200-239 High >239 26 Low <40 Desirable: 40-60 High: >60 27 Desirable: <100 mg/dL Near Optimal: 100-129 mg/dL Borderline High: 130-159 mg/dL High: 160-189 mg/dL Very High: >189 mg/dL 28 Because ethnic data is not always readily available, this report includes an eGFR for both -Americans and non- Americans. The National Kidney Disease Education Program (NKDEP) does not endorse the use of the MDRD equation for patients that are not between the ages of 18 and 70, are , have extremes of body size, muscle mass, or nutritional status, or are non- or non-. According to the National Kidney Foundation, irrespective of diagnosis, the stage of the disease is based on the level of kidney function: Stage Description GFR(mL/min/1.73 m(2)) 1 Kidney damage with normal or decreased GFR 90 2 Kidney damage with mild decrease in GFR 60-89 3 Moderate decrease in GFR 30-59 4 Severe decrease in GFR 15-29 5 Kidney failure <15 (or dialysis) 29 Desirable <150 Borderline high 150-199 High 200-499 Very High >500 30 Desirable <200 Borderline high 200-239 High >239 31 Low <40 Desirable: 40-60 High: >60 32 Desirable: <100 mg/dL Near Optimal: 100-129 mg/dL Borderline High: 130-159 mg/dL High: 160-189 mg/dL Very High: >189 mg/dL 33 Therapeutic target for the treatment of diabetes Mellitus patients is <7% HBA1C, and in selective patients <6.0%.Please refer to [place] [employer] Diabetic care guidelines for further information. 34 Unable to calculate due to low microalbumin 35 Therapeutic target for the treatment of diabetes Mellitus patients is <7% HBA1C, and in selective patients <6.0%.Please refer to [place] [employer] Diabetic care guidelines for further information. 36 Because ethnic data is not always readily available, this report includes an eGFR for both -Americans and non- Americans. The National Kidney Disease Education Program (NKDEP) does not endorse the use of the MDRD equation for patients that are not between the ages of 18 and 70, are , have extremes of body size, muscle mass, or nutritional status, or are non- or non-. According to the National Kidney Foundation, irrespective of diagnosis, the stage of the disease is based on the level of kidney function: Stage Description GFR(mL/min/1.73 m(2)) 1 Kidney damage with normal or decreased GFR 90 2 Kidney damage with mild decrease in GFR 60-89 3 Moderate decrease in GFR 30-59 4 Severe decrease in GFR 15-29 5 Kidney failure <15 (or dialysis) 37 COLLECTION START TIME: 02/16/15 7:20AM THRU 02/17/15 7:25AM 38 Unable to calculate due to insufficient protein Unable to calculate due to insufficient protein 39 FASTING 40 Desirable <150 Borderline high 150-199 High 200-499 Very High >500 41 Desirable <200 Borderline high 200-239 High >239 42 Low <40 Desirable: 40-60 High: >60 43 Desirable: <100 mg/dL Near Optimal: 100-129 mg/dL Borderline High: 130-159 mg/dL High: 160-189 mg/dL Very High: >189 mg/dL 44 Therapeutic target for the treatment of diabetes Mellitus patients is <7% HBA1C, and in selective patients <6.0%.Please refer to [place] [employer] Diabetic care guidelines for further information. 45 Because ethnic data is not always readily available, this report includes an eGFR for both -Americans and non- Americans. The National Kidney Disease Education Program (NKDEP) does not endorse the use of the MDRD equation for patients that are not between the ages of 18 and 70, are , have extremes of body size, muscle mass, or nutritional status, or are non- or non-. According to the National Kidney Foundation, irrespective of diagnosis, the stage of the disease is based on the level of kidney function: Stage Description GFR(mL/min/1.73 m(2)) 1 Kidney damage with normal or decreased GFR 90 2 Kidney damage with mild decrease in GFR 60-89 3 Moderate decrease in GFR 30-59 4 Severe decrease in GFR 15-29 5 Kidney failure <15 (or dialysis) 46 Microalbuminuria in a random sample is defined as: Microalbumin/Creatinine ratio of 30-299 ug/mg. 47 Because ethnic data is not always readily available, this report includes an eGFR for both -Americans and non- Americans. The National Kidney Disease Education Program (NKDEP) does not endorse the use of the MDRD equation for patients that are not between the ages of 18 and 70, are , have extremes of body size, muscle mass, or nutritional status, or are non- or non-. According to the National Kidney Foundation, irrespective of diagnosis, the stage of the disease is based on the level of kidney function: Stage Description GFR(mL/min/1.73 m(2)) 1 Kidney damage with normal or decreased GFR 90 2 Kidney damage with mild decrease in GFR 60-89 3 Moderate decrease in GFR 30-59 4 Severe decrease in GFR 15-29 5 Kidney failure <15 (or dialysis) 48 Desirable <150 Borderline high 150-199 High 200-499 Very High >500 49 Desirable <200 Borderline high 200-239 High >239 50 Low <40 Desirable: 40-60 High: >60 51 Desirable <100 Near Optimal 100-129 Borderline high 130-159 High 160-189 Very High >189 52 Therapeutic target for the treatment of diabetes Mellitus patients is <7% HBA1C, and in selective patients <6.0%.Please refer to [place] [employer] Diabetic care guidelines for further information. 53 HDL Interpretation: Undesirable: High Risk: Less than 40 mg/dL Desirable: Low Risk: Greater than 60 mg/dL 54 LDL Interpretation: Low Risk Optimal Level: LDL Less than 100 mg/dL Near or Above Optimal: LDL 100-129 mg/dL Borderline High Risk: LDL 130-159 mg/dL High Risk: LDL 160-189 mg/dL Very High Risk: LDL Greater than 189 mg/dL 55 Because ethnic data is not always readily available, this report includes an eGFR for both -Americans and non- Americans. The National Kidney Disease Education Program (NKDEP) does not endorse the use of the MDRD equation for patients that are not between the ages of 18 and 70, are , have extremes of body size, muscle mass, or nutritional status, or are non- or non-. According to the National Kidney Foundation, irrespective of diagnosis, the stage of the disease is based on the level of kidney function: Stage Description GFR(mL/min/1.73 m(2)) 1 Kidney damage with normal or decreased GFR 90 2 Kidney damage with mild decrease in GFR 60-89 3 Moderate decrease in GFR 30-59 4 Severe decrease in GFR 15-29 5 Kidney failure <15 (or dialysis) 56 Therapeutic target for the treatment of diabetes Mellitus patients is <7% HBA1C, and in selective patients <6.0%.Please refer to [place] [employer] Diabetic care guidelines for further information. 57 Microalbuminuria in a random sample is defined as: Microalbumin/Creatinine ratio of 30-299 ug/mg. 58 CHOLESTEROL INTERPRETATION: Desirable: Less than 200 MG/DL Borderline-High Risk: 200-239 MG/DL High-Risk: 240 MG/DL and over 59 HDL INTERPRETATION: Undesirable: High Risk: Less than 40 MG/DL Desirable: Low Risk: Greater than 60 MG/DL 60 LDL INTERPRETATION: Low Risk Optimal Level: LDL Less than 100 MG/DL Near or Above Optimal: LDL 100-129 MG/DL Borderline High Risk: LDL 130-159 MG/DL High Risk: LDL 160-189 MG/DL Very High Risk: LDL Greater than 189 MG/DL 61 MICROALBUMINURIA IN A RANDOM SAMPLE IS DEFINED : MICROALBUMIN/CREATININE RATIO OF 30-299 ug/mg. . 62 CHOLESTEROL INTERPRETATION: Desirable: Less than 200 MG/DL Borderline-High Risk: 200-239 MG/DL High-Risk: 240 MG/DL and over 63 HDL INTERPRETATION: Undesirable: High Risk: Less than 40 MG/DL Desirable: Low Risk: Greater than 60 MG/DL 64 LDL INTERPRETATION: Low Risk Optimal Level: LDL Less than 100 MG/DL Near or Above Optimal: LDL 100-129 MG/DL Borderline High Risk: LDL 130-159 MG/DL High Risk: LDL 160-189 MG/DL Very High Risk: LDL Greater than 189 MG/DL 65 Anion gap measurement may be of limited value in the presence of any alkalosis, especially in a combined acid base disorder. . 66 A metabolite of Naproxen, O-desmethylnaproxen, has been shown to interfere with the [place] method for measuring total bilirubin. Samples from patients who have taken Naproxen have shown spurious elevation in total bilirubin levels. 67 Because ethnic data is not always readily available, this report includes an eGFR for both -Americans and non- Americans. The National Kidney Disease Education Program (NKDEP) does not endorse the use of the MDRD equation for patients that are not between the ages of 18 and 70, are , have extremes of body size, muscle mass, or nutritional status, or are non- or non-. According to the National Kidney Foundation, irrespective of diagnosis, the stage of the disease is based on the level of kidney function: Stage Description GFR(mL/min/1.73 m(2)) 1 Kidney damage with normal or decreased GFR 90 2 Kidney damage with mild decrease in GFR 60-89 3 Moderate decrease in GFR 30-59 4 Severe decrease in GFR 15-29 5 Kidney failure <15 (or dialysis) 68 THERAPEUTIC TARGET FOR THE TREATMENT OF DIABETES MELLITUS PATIENTS IS <7% HBA1C, AND IN SELECTIVE PATIENTS <6.0%. PLEASE REFER TO [employer] DIABETIC CARE GUIDELINES FOR FURTHER INFORMATION. 69 THERAPEUTIC TARGET FOR THE TREATMENT OF DIABETES MELLITUS PATIENTS IS <7% HBA1C, AND IN SELECTIVE PATIENTS <6.0%. PLEASE REFER TO [employer] DIABETIC CARE GUIDELINES FOR FURTHER INFORMATION. 70 Anion gap measurement may be of limited value in the presence of any alkalosis, especially in a combined acid base disorder. . 71 A metabolite of Naproxen, O-desmethylnaproxen, has been shown to interfere with the [place] method for measuring total bilirubin. Samples from patients who have taken Naproxen have shown spurious elevation in total bilirubin levels. 72 Because ethnic data is not always readily available, this report includes an eGFR for both -Americans and non- Americans. The National Kidney Disease Education Program (NKDEP) does not endorse the use of the MDRD equation for patients that are not between the ages of 18 and 70, are , have extremes of body size, muscle mass, or nutritional status, or are non- or non-. According to the National Kidney Foundation, irrespective of diagnosis, the stage of the disease is based on the level of kidney function: Stage Description GFR(mL/min/1.73 m(2)) 1 Kidney damage with normal or decreased GFR 90 2 Kidney damage with mild decrease in GFR 60-89 3 Moderate decrease in GFR 30-59 4 Severe decrease in GFR 15-29 5 Kidney failure <15 (or dialysis) 73 ---- RUN DATE: 08/16/11 [facility] NMI LIVE PAGE 1 RUN TIME: 1524 Specimen Inquiry RUN USER: INTERFACE -- Name: MORA FELIX Status: REG REF Re08/12/11 Age/Sex: 71/F Unit#: [id number] Location: 81 [place] [address]. : 40 -- Specimen: [id number] SOUT Spec Date: 08/12/[address]: Jag white MD Spec Type: SURGICAL P Received: 08/13/112481 Copies to: Dai rosales MD SPECIMEN RECTAL POLYP HISTORY POST-OP DIAGNOSIS: Colonoscopy to cecum, prep good; sigmoid diverticulosi s; rectal polyp CLINICAL INFORMATION: Blood in stool GROSS DESCRIPTION The specimen is received in formalin labelled Mora Felix, Rectal Polyp, and consists of a fragment of brown tissue measuring 0.7 x 0.5 x 0.5 cm. The specimen is bisected and submitted entirely in one cassette. DIAGNOSIS Colon, rectum, biopsies: A. Tubulovillous adenoma. B. No high grade dysplasia identified. Signed Electronically by: OG MEJIA MD 08/16/11 [id number] -- -- DEPARTMENT OF PATHOLOGY, [address] [place] [address] [facility] Permit #[id number] Og Mejia M.D. Director Molly Huerta M.D. Oil Paint Shader Dir kayla -- 74 Anion gap measurement may be of limited value in the presence of any alkalosis, especially in a combined acid base disorder. . 75 Because ethnic data is not always readily available, this report includes an eGFR for both -Americans and non- Americans. The National Kidney Disease Education Program (NKDEP) does not endorse the use of the MDRD equation for patients that are not between the ages of 18 and 70, are , have extremes of body size, muscle mass, or nutritional status, or are non- or non-. According to the National Kidney Foundation, irrespective of diagnosis, the stage of the disease is based on the level of kidney function: Stage Description GFR(mL/min/1.73 m(2)) 1 Kidney damage with normal or decreased GFR 90 2 Kidney damage with mild decrease in GFR 60-89 3 Moderate decrease in GFR 30-59 4 Severe decrease in GFR 15-29 5 Kidney failure <15 (or dialysis) 76 MICROALBUMINURIA IN A RANDOM SAMPLE IS DEFINED : MICROALBUMIN/CREATININE RATIO OF 30-299 ug/mg. . 77 Anion gap measurement may be of limited value in the presence of any alkalosis, especially in a combined acid base disorder. . 78 A metabolite of Naproxen, O-desmethylnaproxen, has been shown to interfere with the [place] method for measuring total bilirubin. Samples from patients who have taken Naproxen have shown spurious elevation in total bilirubin levels. 79 Because ethnic data is not always readily available, this report includes an eGFR for both -Americans and non- Americans. The National Kidney Disease Education Program (NKDEP) does not endorse the use of the MDRD equation for patients that are not between the ages of 18 and 70, are , have extremes of body size, muscle mass, or nutritional status, or are non- or non-. According to the National Kidney Foundation, irrespective of diagnosis, the stage of the disease is based on the level of kidney function: Stage Description GFR(mL/min/1.73 m(2)) 1 Kidney damage with normal or decreased GFR 90 2 Kidney damage with mild decrease in GFR 60-89 3 Moderate decrease in GFR 30-59 4 Severe decrease in GFR 15-29 5 Kidney failure <15 (or dialysis) 80 CHOLESTEROL INTERPRETATION: Desirable: Less than 200 MG/DL Borderline-High Risk: 200-239 MG/DL High-Risk: 240 MG/DL and over 81 HDL INTERPRETATION: Undesirable: High Risk: Less than 40 MG/DL Desirable: Low Risk: Greater than 60 MG/DL 82 LDL INTERPRETATION: Low Risk Optimal Level: LDL Less than 100 MG/DL Near or Above Optimal: LDL 100-129 MG/DL Borderline High Risk: LDL 130-159 MG/DL High Risk: LDL 160-189 MG/DL Very High Risk: LDL Greater than 189 MG/DL 83 THERAPEUTIC TARGET FOR THE TREATMENT OF DIABETES [place]LLITUS PATIENTS IS <7% HBA1C, AND IN SELECTIVE PATIENTS <6.0%. PLEASE REFER TO [employer] DIABETIC CARE GUIDELINES FOR FURTHER INFORMATION. 84 Anion gap measurement may be of limited value in the presence of any alkalosis, especially in a combined acid base disorder. . 85 A metabolite of Naproxen, O-desmethylnaproxen, has been shown to interfere with the [place] method for measuring total bilirubin. Samples from patients who have taken Naproxen have shown spurious elevation in total bilirubin levels. 86 Because ethnic data is not always readily available, this report includes an eGFR for both -Americans and non- Americans. The National Kidney Disease Education Program (NKDEP) does not endorse the use of the MDRD equation for patients that are not between the ages of 18 and 70, are , have extremes of body size, muscle mass, or nutritional status, or are non- or non-. According to the National Kidney Foundation, irrespective of diagnosis, the stage of the disease is based on the level of kidney function: Stage Description GFR(mL/min/1.73 m(2)) 1 Kidney damage with normal or decreased GFR 90 2 Kidney damage with mild decrease in GFR 60-89 3 Moderate decrease in GFR 30-59 4 Severe decrease in GFR 15-29 5 Kidney failure <15 (or dialysis) 87 CHOLESTEROL INTERPRETATION: Desirable: Less than 200 MG/DL Borderline-High Risk: 200-239 MG/DL High-Risk: 240 MG/DL and over 88 HDL INTERPRETATION: Undesirable: High Risk: Less than 40 MG/DL Desirable: Low Risk: Greater than 60 MG/DL 89 LDL INTERPRETATION: Low Risk Optimal Level: LDL Less than 100 MG/DL Near or Above Optimal: LDL 100-129 MG/DL Borderline High Risk: LDL 130-159 MG/DL High Risk: LDL 160-189 MG/DL Very High Risk: LDL Greater than 189 MG/DL 90 THERAPEUTIC TARGET FOR THE TREATMENT OF DIABETES MELLITUS PATIENTS IS <7% HBA1C, AND IN SELECTIVE PATIENTS <6.0%. PLEASE REFER TO [employer] DIABETIC CARE GUIDELINES FOR FURTHER INFORMATION. 91 THERAPEUTIC TARGET FOR THE TREATMENT OF DIABETES MELLITUS PATIENTS IS <7% HBA1C, AND IN SELECTIVE PATIENTS <6.0%. PLEASE REFER TO [employer] DIABETIC CARE GUIDELINES FOR FURTHER INFORMATION. 92 MICROALBUMINURIA IN A RANDOM SAMPLE IS DEFINED : MICROALBUMIN/CREATININE RATIO OF 30-299 ug/mg. . 93 THERAPEUTIC TARGET FOR THE TREATMENT OF DIABETES MELLITUS PATIENTS IS <7% HBA1C, AND IN SELECTIVE PATIENTS <6.0%. PLEASE REFER TO [employer] DIABETIC CARE GUIDELINES FOR FURTHER INFORMATION. 94 CHOLESTEROL INTERPRETATION: Desirable: Less than 200 MG/DL Borderline-High Risk: 200-239 MG/DL High-Risk: 240 MG/DL and over 95 HDL INTERPRETATION: Undesirable: High Risk: Less than 40 MG/DL Desirable: Low Risk: Greater than 60 MG/DL 96 LDL INTERPRETATION: Low Risk Optimal Level: LDL Less than 100 MG/DL Near or Above Optimal: LDL 100-129 MG/DL Borderline High Risk: LDL 130-159 MG/DL High Risk: LDL 160-189 MG/DL Very High Risk: LDL Greater than 189 MG/DL 97 Anion gap measurement may be of limited value in the presence of any alkalosis, especially in a combined acid base disorder. . 98 Note change in reference range as of 06/13/08. The change was based on recommendations from the [place] [employer]. 99 Please note change in reference range effective 08 . 100 A metabolite of Naproxen, O-desmethylnaproxen, has been shown to interfere with the [place] method for measuring total bilirubin. Samples from patients who have taken Naproxen have shown spurious elevation in total bilirubin levels. 101 Because ethnic data is not always readily available, this report includes an eGFR for both -Americans and non- Americans. The National Kidney Disease Education Program (NKDEP) does not endorse the use of the MDRD equation for patients that are not between the ages of 18 and 70, are , have extremes of body size, muscle mass, or nutritional status, or are non- or non-. According to the National Kidney Foundation, irrespective of diagnosis, the stage of the disease is based on the level of kidney function: Stage Description GFR(mL/min/1.73 m(2)) 1 Kidney damage with normal or decreased GFR 90 2 Kidney damage with mild decrease in GFR 60-89 3 Moderate decrease in GFR 30-59 4 Severe decrease in GFR 15-29 5 Kidney failure <15 (or dialysis) Procedures Date Code Description Status 04/19/2019 49061 EKG Tracing & Interpretation Completed 03/09/2019 [id number] Diabetic Retinal Eye Exam Completed 02/21/2018 [id number] Diabetic Retinal Eye Exam Completed 08/09/2017 22027 EKG Tracing & Interpretation Completed 07/19/2017 06537 Stress Test Completed 07/19/2017 73207 Myocardial Perfusion Imaging Tomographic (Spect) Completed Multiple Studies 02/22/2017 [id number] Diabetic Retinal Eye Exam Completed 06/09/2016 25205 ECHO Transthoracic, Real-Time 2D With Doppler And Completed Color Flow 02/20/2016 [id number] Diabetic Retinal Eye Exam Completed 02/18/2015 [id number] Diabetic Retinal Eye Exam Completed 09/12/2014 [id number] Colonoscopy Completed 07/10/2014 [id number] Mammogram Completed 04/04/2014 32847 ECHO Transthoracic, Real-Time 2D With Doppler And Completed Color Flow 04/01/2014 02055 Stress Test Completed 04/01/2014 00004 Myocardial Perfusion Imaging Tomographic (Spect) Completed Multiple Studies 04/01/2014 60034 Myocardial Perfusion Imaging Tomographic (Spect) Completed Multiple Studies 03/15/2014 82602 EKG Tracing & Interpretation Completed 02/15/2014 25903 EKG Tracing & Interpretation Completed 02/12/2014 [id number] Diabetic Retinal Eye Exam Completed 07/13/2012 [id number] Mammogram Completed 08/12/2011 [id number] Colonoscopy Completed 07/12/2011 [id number] Bone Mineral Density Test Completed 07/10/2010 [id number] Mammogram Completed 09/15/2009 91546 EKG Tracing & Interpretation Completed 08/30/2007 19738 EKG Tracing & Interpretation Completed 07/05/2006 58446 Holter Monitor Review (24 hr)dr review & interp only Completed 06/23/2006 76300 EKG Tracing & Interpretation Completed 06/23/2006 04711 EKG Tracing & Interpretation Completed 04/30/2004 [id number] Bone Mineral Density Test Completed Encounters Type Date Location Provider Dx Diagnosis Office Visit 08/31/2018 Rheumatology Binh Andrade.673 Pain in 2:00p [facility] unspecified foot E79.0 Hyperuricemia w/o signs of inflam arthrit and tophaceous dis Office Visit 07/10/2018 10:20a [facility] E11.65 Type 2 diabetes Medicine - Regine Osborn mellitus with Ccmob hyperglycemia I10 Essential (primary) hypertension E03.9 Hypothyroidism, unspecified R60.0 Localized edema Z23 Encounter for immunization [place]01.810 Encounter for 10:40a Cardiology Of Saenz[facility] preprocedural [facility] cardiovascular examination E11.9 Type 2 diabetes mellitus without complications I12.9 Hypertensive chronic kidney disease w stg 1-4/unsp chr kdny E78.5 Hyperlipidemia, unspecified E66.8 Other obesity I25.10 Athscl heart disease of [place] coronary artery w/o ang pctrs N18.9 Chronic kidney disease, unspecified I44.7 Left bundle-branch block, unspecified M16.11 Unilateral primary osteoarthritis, right hip Office Visit 07/28/2017 [facility] Internal Dai Z01.810 Encounter for 10:30a Toshia Osborn M.D. preprocedural [facility] cardiovascular examination M16.11 Unilateral primary osteoarthritis, right hip E11.65 Type 2 diabetes mellitus with hyperglycemia R94.39 Abnormal result of other cardiovascular function study N18.3 Chronic kidney disease, stage 3 (moderate) Office Visit 06/21/2017 1:00p [facility] Internal Daimarta Osborn, M25.551 Pain in right Medicine - Ccmob M.D. hip E11.65 Type 2 diabetes mellitus with hyperglycemia R60.0 Localized edema Office Visit 04/22/2017 3:00p [facility] Erum Smith, M25.551 Pain in right Of C.M.A. M.D. hip M25.552 Pain in left hip M16.11 Unilateral primary osteoarthritis, right hip M16.12 Unilateral primary osteoarthritis, left hip Office Visit 04/18/2017 3:00p [facility] Internal Dai Z00.00 Encntr for Medicine Morgan Osborn M.D. general adult medical exam w/o abnormal findings E11.65 Type 2 diabetes mellitus with hyperglycemia I10 Essential (primary) hypertension E78.5 Hyperlipidemia, unspecified E03.9 Hypothyroidism, unspecified Z12.31 Encntr screen mammogram for malignant neoplasm of breast Office Visit 08/10/2016 10:40a [facility] Internal Dai E11.65 Type 2 diabetes Toshia Osborn M.D. mellitus with Ccmob hyperglycemia I10 Essential (primary) hypertension G47.00 Insomnia, unspecified Z23 Encounter for immunization N18.2 Chronic kidney disease, stage 2 (mild) Office Visit 05/10/2016 11:40a [facility] Internal Dai E11.9 Type 2 diabetes Toshia Osborn M.D. mellitus without Ccmob complications I10 Essential (primary) hypertension M25.559 Pain in unspecified hip R60.0 Localized edema Office Visit 02/20/2015 11:00a [facility] 250.00 Diabetes Mellitus Toshia Osborn M.D. W/O Compl Type II Ccmob Or Unspec Controlled 401.1 Hypertension Benign 244.8 Hypothyroidism Other Spec Office Visit 08/22/2014 10:20a [facility] Internal Dai V70.0 Examination Toshia Osborn M.D. General Medical Ccmob Routine AT [facility] Care Facility 250.00 Diabetes Mellitus W/O Compl Type II Or Unspec Controlled 401.1 Hypertension Benign 585.3 Chronic Kidney Disease Stage III Moderate 441.9 Aneurysm Aortic W/O Rupture Unspec Site V76.51 Special Screening For Malignant Neoplasms Colon Office Visit 05/21/2014 3:40p [facility] Internal Dai V72.84 Examination Toshia Osborn M.D. Preoperative Ccmob Unspec 366.04 Cataract Nuclear 401.1 Hypertension Benign 250.00 Diabetes Mellitus W/O Compl Type II Or Unspec Controlled Office Visit 04/17/2014 8:45a [place] [facility] Mei Tena, 426.3 Left Bundle Of Sofa Inspector M.D. Branch Block Other 272.2 Hyperlipidemia Mixed 401.1 Hypertension Benign 424.0 Mitral Valve Disorder V72.81 Examination Preoperative Cardiovascular Office Visit 03/15/2014 2:45p [place] [facility] Mei Tena, 426.3 Left Bundle Of Sofa Inspector M.D. Branch Block Other 272.0 Hypercholesterolemia Pure 401.1 Hypertension Benign 250.00 Diabetes Mellitus W/O Compl Type II Or Unspec Controlled V17.49 Family HX Of Other Cardiovascular Diseases Office Visit 02/15/2014 11:00a [facility] Internal Dai V72.84 Examination Toshia Osborn M.D. Preoperative Ccmob Unspec 366.04 Cataract Nuclear 250.00 Diabetes Mellitus W/O Compl Type II Or Unspec Controlled 401.1 Hypertension Benign 585.3 Chronic Kidney Disease Stage III Moderate V76.10 Screening For Malignant Neoplasm Breast 426.3 Left Bundle Branch Block Other Office Visit 05/08/2013 1:20p [facility] 250.00 Diabetes Mellitus Toshia Osborn M.D. W/O Compl Type II Ccmob Or Unspec Controlled 401.1 Hypertension Benign 272.0 Hypercholesterolemia Pure 244.9 Hypothyroidism Other Unspec Office Visit 11/07/2012 1:20p [facility] 250.00 Diabetes Alyssa Osborn M.D. W/O Compl Type II Ccmob Or Unspec Controlled 401.1 Hypertension Benign 272.0 Hypercholesterolemia Pure Office Visit 07/06/2012 10:40a [facility] Internal Dai V70.0 Examination Toshia Osborn M.D. General Medical Ccmob Routine AT Health Care Facility 250.00 Diabetes Mellitus W/O Compl Type II Or Unspec Controlled 401.1 Hypertension Benign 272.0 Hypercholesterolemia Pure 244.9 Hypothyroidism Other Unspec V76.10 Screening For Malignant Neoplasm Breast V04.81 Need For Prophylactic Vaccination & Inoculation/Influenza Office Visit 05/23/2012 11:20a [facility] 250.00 Diabetes Mellitus Toshia Osborn M.D. W/O Compl Type II Ccmob Or Unspec Controlled 401.1 Hypertension Benign 272.0 Hypercholesterolemia Pure Office Visit 10/05/2011 DO Not Use Dai 250.00 Diabetes 10:40a Caryl Osborn M.D. Mellitus W/O Compl Type II Or Unspec Controlled 401.1 Hypertension Benign 272.0 Hypercholesterolemia Pure Office Visit 07/05/2011 DO Not Use Dai V70.0 Examination 10:20a Caryl Osborn M.D. General Medical Routine AT Health Care Facility 250.00 Diabetes Mellitus W/O Compl Type II Or Unspec Controlled 401.1 Hypertension Benign V76.10 Screening For Malignant Neoplasm Breast 627.9 Menopausal & Postmenopausal Disorder Unspec Office Visit 04/01/2011 DO Not Use Dai 250.00 Diabetes 11:40a Caryl Osborn M.D. Mellitus W/O Compl Type II Or Unspec Controlled 401.1 Hypertension Benign 585.3 Chronic Kidney Disease Stage III Moderate Office Visit 12/11/2010 DO Not Use Dai 250.00 Diabetes 10:15a Caryl Osborn M.D. Mellitus W/O Compl Type II Or Unspec Controlled 401.1 Hypertension Benign 272.0 Hypercholesterolemia Pure Office Visit 08/07/2010 DO Not Use Dai 401.1 Hypertension 9:30a Caryl Osborn M.D. Benign 250.00 Diabetes Mellitus W/O Compl Type II Or Unspec Controlled 272.0 Hypercholesterolemia Pure V04.81 Need For Prophylactic Vaccination & Inoculation/Influenza Office Visit 05/05/2010 DO Not Use Dai 250.00 Diabetes 10:30a Caryl Osborn M.D. Mellitus W/O Compl Type II Or Unspec Controlled 401.1 Hypertension Benign 272.0 Hypercholesterolemia Pure Office Visit 01/13/2010 DO Not Use [place], 250.00 Diabetes 11:15a Caryl Reyes M.D. Mellitus W/O Compl Type II Or Unspec Controlled 401.1 Hypertension Benign 244.9 Hypothyroidism Other Unspec Office Visit 09/15/2009 DO Not Use [place], V70.0 Examination 1:30p Caryl Reyes M.D. General Medical Routine AT Health Care Facility 250.00 Diabetes Mellitus W/O Compl Type II Or Unspec Controlled 401.1 Hypertension Benign 272.0 Hypercholesterolemia Pure 244.9 Hypothyroidism Other Unspec Office Visit 07/14/2009 DO Not Use [place], 250.02 Diabetes 11:15a Caryl Reyes M.D. Mellitus W/O Compl Type II Or Unspec Type Uncontrol 401.1 Hypertension Benign 272.0 Hypercholesterolemia Pure Office Visit 06/20/2009 DO Not Use [place], 250.00 Diabetes 2:00p Caryl Reyes M.D. Mellitus W/O Compl Type II Or Unspec Controlled 272.0 Hypercholesterolemia Pure 401.1 Hypertension Benign V04.81 Need For Prophylactic Vaccination & Inoculation/Influenza Office Visit 07/31/2008 DO Not Use [place], 250.02 Diabetes 9:30a Caryl Reyes M.D. Mellitus W/O Compl Type II Or Unspec Type Uncontrol 401.1 Hypertension Benign V04.81 Need For Prophylactic Vaccination & Inoculation/Influenza Office Visit 04/25/2008 DO Not Use [place], 250.00 Diabetes 9:00a Caryl Reyes M.D. Mellitus W/O Compl Type II Or Unspec Controlled 272.0 Hypercholesterolemia Pure 401.1 Hypertension Benign Office Visit 12/18/2007 DO Not Use [place], 250.00 Diabetes 9:45a Caryl Reyes M.D. Mellitus W/O Compl Type II Or Unspec Controlled 465.9 URI Upper Respiratory Infections Acute Unspec Sites 401.1 Hypertension Benign Office Visit 08/30/2007 DO Not Use [place], V72.31 Routine Inspector Aluminum Boat 2:15p Caryl Reyes M.D. Examination 250.00 Diabetes Mellitus W/O Compl Type II Or Unspec Controlled 244.9 Hypothyroidism Other Unspec 401.1 Hypertension Benign 272.0 Hypercholesterolemia Pure Office Visit 03/15/2007 DO Not Use [place], 250.00 Diabetes 1:15p Caryl Reyes M.D. Mellitus W/O Compl Type II Or Unspec Controlled 401.1 Hypertension Benign Office Visit 09/14/2006 DO Not Use [place], 401.1 Hypertension 10:00a Caryl Reyes M.D. Benign 250.00 Diabetes Mellitus W/O Compl Type II Or Unspec Controlled Office Visit 07/13/2006 DO Not Use [place], 427.9 Cardiac 8:45a Caryl Reyes M.D. Dysrhythmia Unspec 401.1 Hypertension Benign 244.9 Hypothyroidism Other Unspec 790.21 Impaired Fasting Glucose Office Visit 06/23/2006 DO Not Use [place], V70.0 Examination 9:45a Caryl Reyes M.D. General Medical Routine AT Health Care Facility 250.00 Diabetes Mellitus W/O Compl Type II Or Unspec Controlled 794.31 Electrocardiogram (ECG) (EKG) Abnormal 401.1 Hypertension Benign Office Visit 05/16/2006 DO Not Use [place], 401.1 Hypertension 8:30a Caryl Reyes M.D. Benign 244.9 Hypothyroidism Other Unspec 250.00 Diabetes Mellitus W/O Compl Type II Or Unspec Controlled 272.0 Hypercholesterolemia Pure Plan of Treatment Future Appointment(s):05/24/2019 10:40 am - D[facility] M.D[facility] at [facility] - Dai Osborn M.D.E11.65 Type 2 diabetes mellitus with hyperglycemiaComments:Your A1C today is 7.0 which is good.Goal is to be under 8 Stop the pioglitazoneContinue the [id number] Essential (primary) hypertensionComments:Your blood pressure is fine. We are adjusting your medication to help with the leg cqzaeijaU25.0 Localized edemaNew Medication:Torsemide 10 mg - 1 tablet by mouth every dayFollow up:1 qpafxT61.674 Pain in right toe(s)Comments:This may be a bruise or a fracture. Probably not infection, but if the redness gets worse you must let us know immediately
[2019-04-26 20:46] VITALS: BP 158/74
--- NOTE | 2019-04-26 20:48 | UC ---
Hand/Wrist HPI - HPI Summary HPI Summary: Swelling and redness of right index finger--pt. states she woke in the middle of the night 2 nights ago with pain in same finger. No recall of trauma. ROM of same finger painful. - History Of Current Complaint Chief Complaint: UCUpperExtremity Stated Complaint: RIGHT INDEX FINGER SWELLING Time Seen by Provider: 04/26/19 20:44 Hx Obtained From: Patient ?: No Onset/Duration: Sudden Onset, Lasting Days Severity Initially: Severe Severity Currently: Severe Pain Intensity: 8 Character Of Pain: Spasmodic, Stiffness Aggravating Factor(s): Movement Associated Signs And Symptoms: Positive: Swelling, Redness - Allergies/Home Medications Allergies/Adverse Reactions: Allergies Allergy/AdvReac Type Severity Reaction Status Date / Time metformin AdvReac GI Upset Verified 05/05/19 16:26 Home Medications: Home Medications Acetaminophen [Tylenol Arthritis] 650 mg PO DAILY PRN 04/26/19 [History Confirmed 04/26/19] Levothyroxine TAB* [Synthroid TAB*] 125 mcg PO 0800 04/26/19 [History Confirmed 04/26/19] PMH/Surg Hx/FS Hx/Imm Hx Previously Healthy: No Endocrine History: Diabetes, Hypothyroidism Cardiovascular History: Cardiac Disease Other History Of: Negative For: Anticoagulant Therapy - Surgical History Surgical History: Yes Surgery Procedure, Year, and Place: TONSILECTOMY A CHILD 1952, [facility]. TUBAL LIGATION, 1979, [facility] [place] H[place] REPLACEMENT--07/2017 - Family History Known Family History: Positive: Hypertension - Social History Alcohol Use: Occasionally Alcohol Amount: SOCIAL Substance Use Type: None Smoking Status (MU): Never Smoked Tobacco Have You Smoked in the Last Year: No Review of Systems All Other Systems Reviewed And Are Negative: Yes Skin: Positive: Other - erythema and swelling of right index finger Musculoskeletal: Positive: Arthralgia, Decreased ROM, Edema, Myalgia Is Patient Immunocompromised?: No Physical Exam Triage Information Reviewed: Yes Vital Signs: Initial Vital Signs Temp 98.3 F 04/26/19 20:40 Pulse 76 04/26/19 20:40 Resp 24 04/26/19 20:40 BP 158/74 04/26/19 20:40 Pulse Ox 98 04/26/19 20:40 Vital Signs Reviewed: Yes Respiratory Exam: Normal Cardiovascular Exam: Normal Cardiovascular: Positive: RRR, No Murmur, Pulses Normal Abdominal Exam: Normal Abdomen Description: Positive: Nontender, No Organomegaly, Soft Musculoskeletal: Positive: Strength Limited @, ROM Limited @, Edema @ - of the right index finger, tip is blanched, good sensation Neurological Exam: Normal Hand/Wrist Course/Dx - Course Course Of Treatment: hx obtained, exam performed ,meds reviewed, xray obtained. - Differential Dx/Diagnosis Differential Diagnosis/HQI/PQRI: Cellulitis, Dislocation, Sprain, Strain Provider Diagnosis: Cellulitis of finger Discharge - Sign-Out/Discharge Documenting (check all that apply): Patient Departure All imaging exams completed and their final reports reviewed: No Studies - Discharge Plan Condition: Stable Disposition: HOME Prescriptions: Cephalexin CAP* [Keflex CAP*] 500 mg PO TID #20 cap Patient Education Materials: Cellulitis (ED) Referrals: Dai Osborn MD [Primary Care Provider] - Additional Instructions: 1. take the medication as prescribed. 2. Soak in warm water daily for the next few day 3. Elevate at rest 4. If not improving in the next 48 hours, follow up! - Billing Disposition and Condition Condition: STABLE Disposition: Home
[2019-04-26] MEDS ORDERED: Cephalexin CAP* 500 MG PO ONE (20:58)
== END 2019-04-26 21:15 | disposition home or self-care (01) ==
LOC: UCCORT 20:19
DX: L03.011 Cellulitis of right finger (principal); M19.041 Primary osteoarthritis, right hand; E11.9 Type 2 diabetes mellitus without complications; E03.9 Hypothyroidism, unspecified; Z96.641 Presence of right artificial hip joint; Z88.8 Allergy status to other drugs, medicaments and biological substances
CPT/HCPCS: 73140; 99212; A9270-GY; G0463

== ENCOUNTER 2019-05-05 16:20 | Emergency (ER) | payer MEDICARE ==
--- OUTSIDE RECORDS SUMMARY | 2019-05-05 16:43 | XMS REPORT | Continuity of Care Document ---
:1940 External Reference #:[id number] Author Name Marjan Victor Care Team Providers Name Role Phone Dai Osborn MD Primary Care Physician Unavailable Payers Date Identification Numbers Payment Provider Subscriber Effective: 2012 Policy Number: [id number] Medicare Blue Ppo Mora Felix PayID: [id number] [address] [address] [place] [phone] Effective: 2011 Policy Number: [id number] Medicare Blue Ppo Mora Felix Expires: 2012 Group Name: [employer] [address] [address] PayID: [id number] [place] [id number] Problems Active Problems Provider Date Type 2 [...] 76. : (age 70 Father due to [place] Years) : (age 70 Mother due to [...] Use Denies Drug Use Smoking Status Reviewed: 05/02/19 Patient has never smoked Exercise Type/Frequency Does not exercise Allergies, Adverse Reactions, Alerts Active Allergies Reaction Severity Comments Date Metformin diarrhea 01/19/2011 Inactive Allergies No Known Drug Allergy 08/06/2010 Medications Active Medications SIG Qnty Indications Ordering Provider Date Amoxicillin/Clavulana 1 tab by mouth 20tabs L03.011 Kae Sotelo, 2018 te Potassium twice a day M.D. 875-125mg Tablets Tylenol 8 Hour Every Day Unknown 04/26/2019 650mg Tablets ER Torsemide 1 tablet by mouth 30tabs R60.0 Dai Cotton, 04/19/2019 10mg Tablets every day M.D. Diabetic Shoes For daily use 1Pair E11.65 Dai UB., 07/10/2018 M.D. Amoxicillin 4 by mouth one 20caps Dai Anurag, 01/31/2018 500mg hour before M.D. Capsules procedure Metoprolol Succinate Take 1/2 by mouth 30tabs Z01.810 Checo Saenz, ER every day DO FACC 25mg Tablets ER 24HR Atorvastatin Calcium 1 by mouth every 90tabs Z01.810 Dai Cotton, day M.D. 40mg Tablets Roller Walker 1 rolling walker 1units M16.12 Erum Smith, 04/22/2017 Misc M.D. M16.11 Levothyroxine Sodium Take One Tablet 90tabs Dai Cotton, 04/18/2017 125mcg By Mouth Every M.D. Tablets Day Vitamin D Every Day Unknown 02/14/2014 (Cholecalciferol) 1000Unit Tablets Metronidazole Every Day Unknown 02/14/2014 0.75% Cream Repaglinide Take 1 Tablet By 270tabs E11.65 [facility] Anurag, 01/24/2014 0.5mg Tablets Mouth Before M.D. Lunch And 2 Tablets AT Dinner Aspirin 1 tablet once Dai Anurag, 05/02/[address] daily M.D. Lisinopril Take One Tablet 90tabs Dai Anurag, 40mg Tablets By Mouth Every M.D. Day History Medications Keflex Three Times 20caps Unknown 04/26/2019 - 500mg Capsules Daily 05/02/2019 Pioglitazone HCL Take One 30tabs E11.65 [facility] 07/10/2018 - 15mg Tablets Tablet By Regine Osborn 04/19/2019 Mouth Every Day Meloxicam 1 by mouth 14tabs M25.55 Erum Smith 04/22/2017 - 15mg Tablets every day 2 M.D. 04/23/2017 Metronidazole apply two 45units [facility] 09/04/2015 - 0.75% Cream times a day as Regine Osborn 03/24/2016 needed for facial rash Simvastatin Take One 90tabs Z01.81 [facility] 05/23/2012 - 40mg Tablets Tablet By 0 Regine Osborn 08/09/2017 Mouth AT Bedtime Prandin take 1 tablet 60tabs [facility] 01/19/2011 - 0.5mg Tablets twice a day Regine Osborn 01/24/2014 before meals Metformin HCL 1/2 tablet 90tabs 250.00 [facility] 12/11/2010 - 500mg Tablets once daily for Regine Osborn 01/19/2011 2 weeks then increase to whole tablet once daily Simvastatin Take 1 Tablet 30tabs 272.0 [facility] 08/07/2010 - 20mg Tablets By Mouth AT [...] Gluconate 1 by mouth Unknown - 324(37.5Fe) mg twice a day 07/10/2018 Tablets Hydrochlorothiazide Take One 90tabs R60.0 Dai - 25mg Tablets Tablet By Regine Osborn 04/19/2019 Mouth Every Day Medications Administered in Office Medication SIG Qnty Indications Ordering Provider Date Technetium TC 99M I[facility] Nuclear Schedule 07/21/2017 Tetrofosmin, Per Unit Dose Up To 40 Millicuries Injection Inj, Regadenoson, 0.1 MG Checo Saenz, DO FACC 07/19/2017 Injection Technetium TC 99M Checo Saenz, DO FAC 07/19/2017 Tetrofosmin, Per Unit Dose Up To 40 Millicuries Injection Inj, Regadenoson, 0.1 MG Lucas Westfall M.D., 04/01/2014 Injection SCOTTC, FASNC Inj, Regadenoson, 0.1 MG Mei Tena M.D. 04/01/2014 Injection Technetium TC 99M Lucas Westfall M.D., 04/01/2014 Tetrofosmin, Per Unit Dose FACC, FASNC Up To 40 Millicuries Injection Technetium TC 99M Mei Tena M.D. 04/01/2014 Tetrofosmin, Per Unit Dose Up To 40 Millicuries Injection Immunizations CPT Code Status Date Vaccine Lot # [id number] Given 05/02/2019 Tetanus And Diptheria (Td) For Adult Use [id number] Preservative Free 93605 Given 07/10/2018 Influenza Virus Vaccine, Quadrivalent, Split, [id number] Preservative Free Q2035 Given 11/23/2017 Afluria Vaccine Q2039 Given 08/18/2016 Flu Vaccine NOS 43633 Given 08/10/2016 Pneumococcal Conjugate Vaccine 13 Valent For [id number] Intramuscular Use 51829 Given 09/04/2015 Influenza Virus Vaccine, Quadrivalent, Split, [id number] Preservative Free 71501 Given 07/10/2014 Fluzone High Dose Q2038 Given 07/06/2012 Fluzone Vaccine [id number] 32965 Given 05/18/2011 Influenza Virus 3Yrs & Over 69339 Given 08/07/2010 Influenza Virus 3Yrs & Over 15155 Given 06/20/2009 Influenza Virus 3Yrs & Over 10621 Given 07/31/2008 Influenza Virus 3Yrs & Over 77892 Given 06/23/2006 Pneumonia Vaccine 10707 Given 06/23/2006 Tetanus And Diptheria (Td) For Adult Use Preservative Free 01125 Given 06/23/2006 Tetanus And Diptheria (Td) For Adult Use Preservative Free Vital Signs Date Vital Result Comment 05/02/2019 1:43pm Height 62 inches 5'2" Weight 225.00 lb Heart Rate 70 /min BP Systolic Sitting 168 mmHg BP Diastolic Sitting 70 mmHg O2 % BldC Oximetry 96 % BMI (Body Mass Index) 41.1 kg/m2 04/19/2019 10:20am Height 62 inches 5'2" Weight [...] Date Facility Test Result H/L Range Note Comp Metabolic Panel 04/19/2019 [facility] Sodium 142 mmol/L N 135-[address] [place] [address] [phone] Potassium 4.9 mmol/L N 3.5-5.0 Chloride 107 mmol/L N 101-111 Co2 Carbon Dioxide 27 mmol/L N 22-32 Anion Gap 8 mmol/L N 2-11 Glucose 178 mg/dL High 70-100 Blood Urea Nitrogen 31 mg/dL High 6-24 Creatinine 1.28 mg/dL High 0.51-0.95 BUN/Creatinine Ratio 24.2 High 8-20 Calcium 9.4 mg/dL N 8.6-10.3 Total Protein 6.6 g/dL N 6.4-8.9 Albumin 4.0 g/dL N 3.2-5.2 Globulin 2.6 g/dL N 2-4 Albumin/Globulin Ratio 1.5 N 1-3 Total Bilirubin 0.60 mg/dL N 0.2-1.0 Alkaline Phosphatase 81 U/L N 34-104 Alt 12 U/L N 7-52 Ast 16 U/L N 13-39 Egfr Non- 40.3 >60 Egfr 48.8 >60 1 Laboratory test 04/19/2019 [facility] TSH (Thyroid 4.81 mcIU/mL N 0.34-5.[address] Stim Horm) [place] [address] [phone] B-Type Natriuretic Peptide BNP 108 pg/mL High <=100 Laboratory test 04/19/2019 [facility] Hemoglobin A1c 7.0 5-7 finding Lipid Profile 07/05/2018 [facility] Triglycerides 199 mg/dL 2 (Trig/Chol/HDL) [address] [place] [address] [phone] Cholesterol 155 mg/dL 3 HDL Cholesterol 34.1 mg/dL 4 LDL Cholesterol 81 mg/dL 5 Comp Metabolic Panel 07/05/2018 [facility] Sodium 139 mmol/L N 135-[address] [place] [address] [phone] Potassium 4.6 mmol/L N 3.5-5.0 Chloride 104 [...] Egfr Non- 43.9 >60 Egfr 53.1 >60 6 Laboratory test 07/05/2018 [facility] Hemoglobin A1c 8.7 % High 4.0-5.[address] (Glyco HGB) [place] [address] [phone] Urine 07/05/2018 [facility] Ur Microalbumin < 15.[address] (mg/L) [place] [address] [phone] Urine Creatinine 35.03 mg/dL Urine Microalbumin/Creatinine TNP <31 8 CBC Auto Diff 07/05/2018 [facility] White Blood 6.4 10^3/uL N 3.5-10.[address] [place] [address] [phone] Red Blood Count 3.97 10^6/uL Low 4.00-5.40 [...] Blood Cells % 0.1 Arthritis Panel 07/05/2018 [facility] Uric Acid 10.4 mg/dL High 2.3-6.[address] [place] [address] [phone] Rheumatoid Factor < 10 IU/mL N <15 Erythrocyte Sed Rate 47 mm/Hr High 0-40 Anti-Nuclear Antibody 0.5 U 9 Cyclic Citrullinated Peptide <15.6 U 10 Interpretation See Comment 11 Laboratory test 07/05/2018 [facility] Cyclic Citrullinated < 15.6 U [address] [place] [address] [phone] C Reactive Protein 7.28 mg/L N <8.01 13 TSH (Thyroid Stim Horm) 2.73 mcIU/mL N 0.34-5.60 14 Protein 07/21/2017 [facility] Total 7.4 g/dL N 6.3 - Electrophoresis [address] Protein(Pep) 7.9 [place] [address] [phone] Albumin 3.4 g/dL N 3.4-4.7 Alpha-1 Globulin 0.3 g/dL N 0.1-0.3 Alpha-2 Globulin 1.3 g/dL Abnormal 0.6-1.0 Beta Globulin 1.2 g/dL N 0.7-1.2 Gamma Globulin 1.3 g/dL N 0.6-1.6 Albumin/Globulin Ratio 0.84 N Impression See Comment N 15 Laboratory test finding 07/21/2017 [facility] LDH 195 U/L N 140-[address] [place] [address] [phone] C Reactive Protein 9.99 mg/L High < 5.00 16 Folic Acid (Folate) 12.55 ng/mL N >3.99 Vitamin B12 314 pg/mL N 180-634 17 Hemoglobin A1c (Glyco HGB) 7.7 % High Less than 6.0 18 Comp Metabolic Panel 07/21/2017 [facility] Sodium 138 mmol/L N 133-[address] [place] [address] [phone] Chloride 102 mmol/L N 101-111 Co2 Carbon [...] 32.4 N >60 Egfr 41.7 N >60 19 Potassium 5.2 mmol/L High 3.5-5.0 Anion Gap 10 mmol/L N 2-11 Laboratory test 07/21/2017 [facility] TSH (Thyroid 2.79 mcIU/mL N 0.34-5.[address] Stim Horm) [place] [address] [phone] CBC Auto Diff 07/05/2017 [facility] White Blood 7.0 10^3/uL N 3.5-10.[address] [place] [address] [phone] Red Blood Count 3.72 10^6/uL Low 4.0-5.4 [...] Blood Cells % 0 N Laboratory test 07/05/2017 [facility] Albumin 3.9 g/dL N 3.2- 5.2 20 finding [address] [place] [address] [phone] Iron & Iron Binding 07/05/2017 [facility] Iron 53 g/dL N 50- 212 [address] [place] [address] [phone] Unsaturated Iron Binding 301 g/dL N Total Iron Binding Capacity 354 g/dL N 250-450 % Iron Saturation 15 % N 15-55 Laboratory test 07/05/2017 [facility] Ferritin 167.4 N 11-307 21 finding 101 [facility] ng/[place] [address] [phone] Laboratory test 04/15/2017 [facility] TSH (Thyroid 7.19 High 0.34-5.[address] Stim Horm) mcIU/[place] [address] [phone] Urine 04/15/2017 [facility] Urine 44.99 N Microalbumin [address] Creatinine mg/[place] [address] [phone] Ur Microalbumin (mg/L) < 15.0 mg/L N Urine Microalbumin/Creatinine TNP ug/mg N <31 22 Laboratory test 04/15/2017 [facility] Hemoglobin A1c 8.1 % High Less than [address] (Glyco HGB) 6.0 [place] [address] [phone] Comp Metabolic 04/15/2017 [facility] Sodium 136 N 133-[address] mmol/[place] [address] [phone] Potassium 4.8 mmol/L N 3.5-5.0 Chloride 103 [...] 39.1 N >60 Egfr 50.3 N >60 24 Lipid Profile 04/15/2017 [facility] Triglycerides 248 mg/dL N 25 (Trig/Chol/HDL) [address] [place] [address] [phone] Cholesterol 164 mg/dL N 26 HDL Cholesterol 36.1 mg/dL N 27 LDL Cholesterol 78 mg/dL N 28 Laboratory test 08/10/2016 [facility] Hemoglobin A1c 7.5 High 5-7 finding Comp Metabolic 05/05/2016 [facility] Sodium 136 mmol/L N 133- [address] [place] [address] [phone] Potassium 4.9 mmol/L N 3.5-5.0 Chloride 104 [...] 38.5 N >60 Egfr 49.5 N >60 29 Lipid Profile 05/05/2016 [facility] Triglycerides 262 mg/dL N 30 (Trig/Chol/HDL) [address] [place] [address] [phone] Cholesterol 171 mg/dL N 31 HDL Cholesterol 32.2 mg/dL N 32 LDL Cholesterol 86 mg/dL N 33 Laboratory test 05/05/2016 [facility] Hemoglobin A1c 7.7 % High Less than [address] (Glyco HGB) 6.[address] [place] [address] [phone] Comp Metabolic 09/01/2015 [facility] Sodium 135 N 133-[address] mmol/[place] [address] [phone] Potassium 4.3 mmol/L N 3.5-5.0 Chloride 103 [...] 39.2 N >60 Egfr 50.5 N >60 35 Laboratory test 09/01/2015 [facility] Hemoglobin A1c 7.0 % High Less than [address] (Glyco HGB) 6.[address] [place] [address] [phone] TSH (Thyroid Stim Horm) 2.58 ?IU/mL N 0.34-5.60 Urine Microalbumin 09/01/2015 [facility] Ur Microalbumin < 5.0 mg/L N Random [address] (mg/L) [place] [address] [phone] Urine Creatinine 23.46 mg/dL N Urine Microalbumin/Creatinine TNP ug/mg N <31 37 Creatinine Clearance 02/17/2015 Urine Random Creatinine 91.41 mg/dL N 38 Creatinine 1.20 mg/dL High 0.51-0.95 Creatinine Clearance 79 mL/min Low 88-128 Urine Collection Time 24 N Urine Total Volume 1500 mL N Total Protein 24HR Urine 02/17/2015 Urine Random Total Protein < 6 mg/dL N Urine Total Protein/24HR (SEE NOTE) mg/24Hr N 0-165 39 Urine Collection Time 24 N Urine Total Volume 1500 mL N Lipid Profile 02/14/2015 [facility] Triglycerides 227 mg/dL N 40, 41 (Trig/Chol/HDL) [address] [place] [address] [phone] Cholesterol 184 mg/dL N 42 HDL Cholesterol 41.7 mg/dL N 43 LDL Cholesterol 97 mg/dL N 44 Laboratory test 02/14/2015 [facility] Hemoglobin A1c 7.3 % High Less than [address] [place] [address] [phone] Comp Metabolic 02/14/2015 [facility] Sodium 136 N 133-[address] mmol/[place] [address] [phone] Potassium 4.3 mmol/L N 3.5-5.0 Chloride 101 [...] 45.7 N >60 Egfr 58.7 N >60 46 Laboratory test 08/22/2014 [facility] Hemoglobin A1c 6.4 5-7 finding Order 04/01/2014 [facility] Stress Test, <pending> Pharmacologic Nuclear (Lexiscan) Comp Metabolic 02/11/2014 [facility] Sodium 138 mmol/L N 133- [address] [place] [address] [phone] Potassium 4.4 mmol/L N 3.7-5.6 Chloride 104 [...] 46.6 N >60 47 Lipid Profile 02/11/2014 [facility] Triglycerides 181 mg/dL N 48 (Trig/Chol/HDL) [address] [place] [address] [phone] Cholesterol 144 mg/dL N 49 HDL Cholesterol 34.7 mg/dL N 50 LDL Cholesterol 73 mg/dL N 51 Laboratory test 02/11/2014 [facility] Hemoglobin A1c 6.5 % High Less [address] than [address] [place] [address] [phone] Urine 02/11/2014 [facility] Ur Microalbumin 5.0 N <30 [address] (mg/L) mg/[place] [address] [phone] Urine Creatinine 22.91 mg/dL N Urine Microalbumin/Creatinine 21.8 N Less Than 31 Laboratory test 02/11/2014 [facility] TSH (Thyroid 1.70 N 0.34 -5.[address] Stimulating IU/[place] [address] Horm) [phone] Urine 05/03/2013 [facility] Ur Microalbumin 2.0 mg/L [address] (mg/L) [place] [address] [phone] Urine Creatinine 56.5 mg/dL Urine Microalbumin/Creatinine 3.5 Less Than 31 Laboratory test 05/03/2013 [facility] Hemoglobin A1c 6.7 % High Less than [address] [place] [address] [phone] Comp Metabolic 05/03/2013 [facility] Sodium 137 133-[address] mmol/[place] [address] [phone] Potassium 4.8 mmol/L 3.5-5.0 Chloride 103 mmol/L [...] Egfr Non- 40.2 >60 Egfr 51.6 >60 56 Lipid Profile 05/03/2013 [facility] Triglycerides 263 mg/dL High 40-200 (Trig/Chol/HDL) [address] [place] [address] [phone] Cholesterol 160 mg/dL Less than 200 HDL Cholesterol 37 mg/dL Low 40-60 57 Cholesterol/HDL Ratio 4.3 Average 1-4.44 LDL Cholesterol 70.4 Less Than 100 58 Laboratory test 11/07/2012 [facility] In House Hemoglobin A1c 6.7 5-7 finding Lipid Profile 07/04/2012 [facility] Triglyceride 268 mg/dL High 40-200 (Trig/Chol/HDL) [address] [place] [address] [phone] Cholesterol 176 mg/dL Less Than 200 59 High Density Lipoprotein 37 mg/dL Low 40-60 60 Cholesterol/HDL Ratio 4.76 AVERAGE High 1-4.44 Low Density Lipoprotein 85 mg/dL Less Than 100 61 Laboratory test finding 07/04/2012 [facility] Ast (Sgot) 24 U/L 12-42 [address] [place] [address] [phone] Alt (SGPT) 24 U/L 14-54 TSH 0.56 MIU/ML 0.34-5.60 Urine Microalbumin 05/19/2012 [facility] Microalbumin (MG/L) 2.0 mg/L Random [address] [place] [address] [phone] Urine Creatinine 51.2 mg/dL Dennis Alb/Creatinine Ratio 3.9 UG/MG Less Than 30 62 Lipid Panel 05/19/2012 [facility] Triglyceride 285 mg/dL High 40-[address] [place] [address] [phone] Cholesterol 195 mg/dL Less Than 200 63 High Density Lipoprotein 37 mg/dL Low 40-60 64 Cholesterol/HDL Ratio 5.27 AVERAGE High 1-4.44 Low Density Lipoprotein 101 mg/dL High Less Than 100 65 CMP Panel 05/19/2012 [facility] Sodium 138 mmol/L 135-[address] [place] [address] [phone] Potassium 4.4 mmol/L 3.5-5.0 Chloride 105 mmol/L 101-111 Co2 (Carbon Dioxide) 26.0 mmol/L 22-32 Anion Gap 7.0 mmol/L 2-11 66 Glucose 131 mg/dL High 70-100 BUN 27 mg/dL High 6-24 Creatinine 1.4 mg/dL 0.50-1.40 One Over Creatinine 0.71 BUN/Creatinine Ratio 19.3 8-20 Calcium 9.0 mg/dL 8.1-9.9 Total Protein 5.9 GM/DL Low 6.2-8.1 Albumin 3.8 GM/DL 3.2-5.2 Globulin 2.1 GM/DL 2-4 Albumin/Globulin Ratio 1.8 1-3 Bilirubin Total 0.8 mg/dL 0.4-1.5 67 Alkaline Phosphatase 73 U/L 30-110 Alt (SGPT) 20 U/L 14-54 Ast (Sgot) 21 U/L 12-42 eGFR Non- 37.0 > 60 eGFR 47.5 > 60 68 Laboratory test 05/19/2012 [facility] Hemoglobin A1c 6.5 % High Less Than [address] [place] [address] [phone] Laboratory test 09/27/2011 [facility] Hemoglobin A1c 6.7 % High Less Than [address] [place] [address] [phone] Comp Metabolic 09/27/2011 [facility] Sodium 139 135-[address] mmol/[place] [address] [phone] Potassium 4.4 mmol/L 3.5-5.0 Chloride 106 mmol/L 101-111 Co2 (Carbon Dioxide) 26.0 mmol/L 22-32 Anion Gap 7.0 mmol/L 2-11 71 Glucose 167 mg/dL High 70-100 BUN 30 mg/dL High 6-24 Creatinine 1.2 mg/dL 0.50-1.40 One Over Creatinine 0.83 BUN/Creatinine Ratio 25.0 High 8-20 Calcium 9.0 mg/dL 8.1-9.9 Total Protein 6.3 GM/DL 6.2-8.1 Albumin 4.0 GM/DL 3.2-5.2 Globulin 2.3 GM/DL 2-4 Albumin/Globulin Ratio 1.7 1-3 Bilirubin Total 0.6 mg/dL 0.4-1.5 72 Alkaline Phosphatase 80 U/L 30-110 Alt (SGPT) 19 U/L 14-54 Ast (Sgot) 21 U/L 12-42 eGFR Non- 44.3 > 60 eGFR 57.0 > 60 73 Surgical 08/12/2011 [facility] Surgical [address] Pathology <SEE NOTE> [place] [address] [phone] Basic 05/25/2011 [facility] Sodium 139 mmol/L 135- Metabolic [address] 145 [place] [address] [phone] Potassium 4.5 mmol/L 3.5-5.0 Chloride 105 mmol/L 101-111 Co2 (Carbon Dioxide) 26.0 mmol/L 22-32 Anion Gap 8.0 mmol/L 2-11 75 Glucose 91 mg/dL 70-100 BUN 28 mg/dL High 6-24 Creatinine 1.10 mg/dL 0.50-1.40 One Over Creatinine 0.90 BUN/Creatinine Ratio 25.5 High 8-20 Calcium 9.1 mg/dL 8.1-9.9 eGFR Non- 49.0 > 60 eGFR 63.0 > 60 76 Urine Microalbumin 03/30/2011 [facility] Microalbumin (MG/L) 2.0 mg/L Random [address] [place] [address] [phone] Urine Creatinine 31.44 mg/dL Dennis Alb/Creatinine Ratio 6.3 UG/MG Less Than 30 77 Laboratory test 03/30/2011 [facility] Creatinine 31.44 mg/dL finding [address] [place] [address] [phone] Comp Metabolic 03/29/2011 [facility] Sodium 141 mmol/L 135- [address] [place] [address] [phone] Potassium 4.6 mmol/L 3.5-5.0 Chloride 108 mmol/L 101-111 Co2 (Carbon Dioxide) 26.0 mmol/L 22-32 Anion Gap 7.0 mmol/L 2-11 78 Glucose 146 mg/dL High 70-100 BUN 32 mg/dL High 6-24 Creatinine 1.50 mg/dL High 0.50-1.40 One Over Creatinine 0.60 BUN/Creatinine Ratio 21.3 High 8-20 Calcium 8.9 mg/dL 8.1-9.9 Total Protein 6.4 GM/DL 6.2-8.1 Albumin 3.9 GM/DL 3.2-5.2 Globulin 2.5 GM/DL 2-4 Albumin/Globulin Ratio 1.6 1-3 Bilirubin Total 0.7 mg/dL 0.4-1.5 79 Alkaline Phosphatase 67 U/L 30-110 Alt (SGPT) 18 U/L 14-54 Ast (Sgot) 22 U/L 12-42 eGFR Non- 34.3 > 60 eGFR 44.1 > 60 80 Lipid Profile 03/29/2011 [facility] Triglyceride 203 mg/dL High 40-200 (Trig/Chol/HDL) [address] [place] [address] [phone] Cholesterol 176 mg/dL Less Than 200 81 High Density Lipoprotein 36 mg/dL Low 40-60 82 Cholesterol/HDL Ratio 4.89 AVERAGE High 1-4.44 Low Density Lipoprotein 99 mg/dL Less Than 100 83 Laboratory test 03/29/2011 [facility] TSH 2.38 MIU/ML 0.34- 5.[address] [place] [address] [phone] Hemoglobin A1c 6.6 % High Less Than 6.0 84 Comp Metabolic Panel 12/07/2010 [facility] Sodium 141 mmol/L 135-[address] [place] [address] [phone] Potassium 4.9 mmol/L 3.5-5.0 Chloride 103 mmol/L 101-111 Co2 (Carbon Dioxide) 30.0 mmol/L 22-32 Anion Gap 8.0 mmol/L 2-11 85 Glucose 143 mg/dL High 70-100 BUN 31 mg/dL High 6-24 Creatinine 1.30 mg/dL 0.50-1.40 One Over Creatinine 0.70 BUN/Creatinine Ratio 23.8 High 8-20 Calcium 9.1 mg/dL 8.1-9.9 Total Protein 6.8 GM/DL 6.2-8.1 Albumin 4.1 GM/DL 3.2-5.2 Globulin 2.7 GM/DL 2-4 Albumin/Globulin Ratio 1.5 1-3 Bilirubin Total 0.8 mg/dL 0.4-1.5 86 Alkaline Phosphatase 75 U/L 30-110 Alt (SGPT) 21 U/L 14-54 Ast (Sgot) 20 U/L 12-42 eGFR Non- 40.5 > 60 eGFR 52.1 > 60 87 Lipid Profile 12/07/2010 [facility] Triglyceride 239 mg/dL High 40-200 (Trig/Chol/HDL) [address] [place] [address] [phone] Cholesterol 163 mg/dL Less Than 200 88 High Density Lipoprotein 38 mg/dL Low 40-60 89 Cholesterol/HDL Ratio 4.29 AVERAGE 1-4.44 Low Density Lipoprotein 77 mg/dL Less Than 100 90 Laboratory test 12/07/2010 [facility] Hemoglobin A1c 7.0 % High Less Than [address] [place] [address] [phone] Laboratory test 07/31/2010 [facility] Hemoglobin A1c 7.0 % High Less Than [address] [place] [address] [phone] Laboratory test 2010 [facility] Hemoglobin A1c 7.0 % High Less Than [address] [place] [address] [phone] Lipid Profile 2010 [facility] Triglyceride 253 High 40- 200 (Trig/Chol/HDL) [address] mg/[place] [address] [phone] Cholesterol 194 mg/dL Less Than 200 94 High Density Lipoprotein 33 mg/dL Low 40-60 95 Cholesterol/HDL Ratio 5.88 AVERAGE High 1-4.44 Low Density Lipoprotein 110 mg/dL High Less Than 100 96 Comp Metabolic Panel 2010 [facility] Sodium 139 mmol/L 135-[address] [place] [address] [phone] Potassium 4.6 mmol/L 3.5-5.0 Chloride 103 mmol/L [...] > 60 eGFR 63.1 > 60 101 Urine Microalbumin 2010 [facility] Microalbumin < 2.0 mg/ L Random [address] (MG/L) [place] [address] [phone] Urine Creatinine 77.17 mg/dL 102 1 Because ethnic data is not always readily [...] 15-29 5 Kidney failure <15 (or dialysis) 2 Desirable: <150 Borderline High: 150-199 High: 200-499 Very High: >500 3 Desirable: <200 Borderline High: 200-239 High: >239 4 Low: <40 Desirable: 40-60 High: >60 5 Desirable: <100 Near Optimal: 100-129 Borderline High: 130-159 High: 160-189 Very High: >189 6 Because ethnic data is not always readily [...] 15-29 5 Kidney failure <15 (or dialysis) 7 Therapeutic target for the treatment of diabetes mellitus patients is <7% HBA1C, and in selective patients <6.0%. Please refer to [place] [employer] diabetic care guidelines for further information. 8 Unable to calculate due to low microalbumin 9 REFERENCE VALUE <=1.0 (Negative) 10 REFERENCE VALUE <20.0 (Negative) 11 Tests for antibodies to dsDNA and ERIN antigens are not performed automatically unless the JESSENIA result is > or= 3.0 U. Studies performed at [facility] indicate that positive JESSENIA results <3.0 U are rarely accompanied by positive second order tests. Test Performed by: [facility] [address] [place] [address] 12 REFERENCE VALUE <20.0 (Negative) Test Performed by: [address] [address] 13 FASTING 10 HOUR 14 FASTING 10 HOUR 15 RESULT: No apparent monoclonal protein on serum electrophoresis. Test Performed by: [address] [address] 16 Acute inflammation: >10.00 17 Normal Range 180 to 914 Indeterminate Range 145 to 180 Deficient Range <145 18 Therapeutic target for the treatment of diabetes Mellitus patients is <7% HBA1C, and in selective patients <6.0%.Please refer to [employer] Diabetic care guidelines for further information. 19 Because ethnic data is not always readily [...] 15-29 5 Kidney failure <15 (or dialysis) 20 CANCEL HA1C PER PT 21 CANCEL HA1C PER PT 22 Unable to calculate due to low microalbumin 23 Therapeutic target for the treatment of diabetes Mellitus patients is <7% HBA1C, and in selective patients <6.0%.Please refer to [place] Diabetic care guidelines for further information. 24 Because ethnic data is not always readily [...] 15-29 5 Kidney failure <15 (or dialysis) 25 Desirable <150 Borderline high 150-199 High 200-499 Very High >500 26 Desirable <200 Borderline high 200-239 High >239 27 Low <40 Desirable: 40-60 High: >60 28 Desirable: <100 mg/dL Near Optimal: 100-129 mg/dL Borderline High: 130-159 mg/dL High: 160-189 mg/dL Very High: >189 mg/dL 29 Because ethnic data is not always readily [...] 15-29 5 Kidney failure <15 (or dialysis) 30 Desirable <150 Borderline high 150-199 High 200-499 Very High >500 31 Desirable <200 Borderline high 200-239 High >239 32 Low <40 Desirable: 40-60 High: >60 33 Desirable: <100 mg/dL Near Optimal: 100-129 mg/dL Borderline High: 130-159 mg/dL High: 160-189 mg/dL Very High: >189 mg/dL 34 Therapeutic target for the treatment of diabetes Mellitus patients is <7% HBA1C, and in selective patients <6.0%.Please refer to [place] Diabetic care guidelines for further information. 35 Because ethnic data is not always readily [...] 15-29 5 Kidney failure <15 (or dialysis) 36 Therapeutic target for the treatment of diabetes Mellitus patients is <7% HBA1C, and in selective patients <6.0%.Please refer to [place] Diabetic care guidelines for further information. 37 Unable to calculate due to low microalbumin 38 COLLECTION START TIME: 02/16/15 7:20AM THRU 02/17/15 7:25AM 39 Unable to calculate due to insufficient protein Unable to calculate due to insufficient protein 40 FASTING 41 Desirable <150 Borderline high 150-199 High 200-499 Very High >500 42 Desirable <200 Borderline high 200-239 High >239 43 Low <40 Desirable: 40-60 High: >60 44 Desirable: <100 mg/dL Near Optimal: 100-129 mg/dL Borderline High: 130-159 mg/dL High: 160-189 mg/dL Very High: >189 mg/dL 45 Therapeutic target for the treatment of diabetes Mellitus patients is <7% HBA1C, and in selective patients <6.0%.Please refer to [place] Diabetic care guidelines for further information. 46 Because ethnic data is not always readily [...] 15-29 5 Kidney failure <15 (or dialysis) 47 Because ethnic data is not always [...] and in selective patients <6.0%.Please refer to [place] Diabetic care guidelines for further information. 53 Microalbuminuria in a random sample is defined as: Microalbumin/Creatinine ratio of 30-299 ug/mg. 54 Microalbuminuria in a random sample is defined as: Microalbumin/Creatinine ratio of 30-299 ug/mg. 55 Therapeutic target for the treatment of diabetes Mellitus patients is <7% HBA1C, and in selective patients <6.0%.Please refer to [place] Diabetic care guidelines for further information. 56 Because ethnic data is not always readily [...] 15-29 5 Kidney failure <15 (or dialysis) 57 HDL Interpretation: Undesirable: High Risk: Less than 40 mg/dL Desirable: Low Risk: Greater than 60 mg/dL 58 LDL Interpretation: Low Risk Optimal Level: LDL Less than 100 mg/dL Near or Above Optimal: LDL 100-129 mg/dL Borderline High Risk: LDL 130-159 mg/dL High Risk: LDL 160-189 mg/dL Very High Risk: LDL Greater than 189 mg/dL 59 CHOLESTEROL INTERPRETATION: Desirable: Less than 200 MG/DL Borderline-High Risk: 200-239 MG/DL High-Risk: 240 MG/DL and over 60 HDL INTERPRETATION: Undesirable: High Risk: Less than 40 MG/DL Desirable: Low Risk: Greater than 60 MG/DL 61 LDL INTERPRETATION: Low Risk Optimal Level: LDL Less than 100 MG/DL Near or Above Optimal: LDL 100-129 MG/DL Borderline High Risk: LDL 130-159 MG/DL High Risk: LDL 160-189 MG/DL Very High Risk: LDL Greater than 189 MG/DL 62 MICROALBUMINURIA IN A RANDOM SAMPLE IS DEFINED : MICROALBUMIN/CREATININE RATIO OF 30-299 ug/mg. . 63 CHOLESTEROL INTERPRETATION: Desirable: Less than 200 MG/DL Borderline-High Risk: 200-239 MG/DL High-Risk: 240 MG/DL and over 64 HDL INTERPRETATION: Undesirable: High Risk: Less than 40 MG/DL Desirable: Low Risk: Greater than 60 MG/DL 65 LDL INTERPRETATION: Low Risk Optimal Level: LDL Less than 100 MG/DL Near or Above Optimal: LDL 100-129 MG/DL Borderline High Risk: LDL 130-159 MG/DL High Risk: LDL 160-189 MG/DL Very High Risk: LDL Greater than 189 MG/DL 66 Anion gap measurement may be of limited value in the presence of any alkalosis, especially in a combined acid base disorder. . 67 A metabolite of Naproxen, O-desmethylnaproxen, has been shown to interfere with the Jendrassik-Siletz method for measuring total bilirubin. Samples from patients who have taken Naproxen have shown spurious elevation in total bilirubin levels. 68 Because ethnic data is not always readily [...] 15-29 5 Kidney failure <15 (or dialysis) 69 THERAPEUTIC TARGET FOR THE TREATMENT OF DIABETES MELLITUS PATIENTS IS <7% HBA1C, AND IN SELECTIVE PATIENTS <6.0%. PLEASE REFER TO [employer] DIABETIC CARE GUIDELINES FOR FURTHER INFORMATION. 70 THERAPEUTIC TARGET FOR THE TREATMENT OF DIABETES MELLITUS PATIENTS IS <7% HBA1C, AND IN SELECTIVE PATIENTS <6.0%. PLEASE REFER TO [employer] DIABETIC CARE GUIDELINES FOR FURTHER INFORMATION. 71 Anion gap measurement may be of limited value in the presence of any alkalosis, especially in a combined acid base disorder. . 72 A metabolite of Naproxen, O-desmethylnaproxen, has been shown to interfere with the Jendrassik-Siletz method for measuring total bilirubin. Samples from patients who have taken Naproxen have shown spurious elevation in total bilirubin levels. 73 Because ethnic data is not always readily [...] 15-29 5 Kidney failure <15 (or dialysis) 74 ---- RUN DATE: 08/16/11 [facility] NMI LIVE PAGE 1 RUN TIME: 1524 Specimen Inquiry RUN USER: INTERFACE -- Name: MORA FELIX Status: REG REF Re08/12/11 Age/Sex: 71/F Unit#: [id number] Location: [facility] : 40 -- Specimen: [id number] RADHA Spec Date: 08/12/[address]: Jag white MD Spec Type: SURGICAL P Received: 08/13/11 Copies to: Dai rosales MD SPECIMEN RECTAL [...] high grade dysplasia identified. Signed Electronically by: BRANDEN PATHAK MD 08/16/11 1522 -- -- DEPARTMENT OF PATHOLOGY, [address] [place] [address] [facility] Permit #[id number] Regine Leal M.D. Butt Trimmer Dir kayla -- 75 Anion gap measurement may be of limited value in the presence of any alkalosis, especially in a combined acid base disorder. . 76 Because ethnic data is not always readily [...] 15-29 5 Kidney failure <15 (or dialysis) 77 MICROALBUMINURIA IN A RANDOM SAMPLE IS DEFINED : MICROALBUMIN/CREATININE RATIO OF 30-299 ug/mg. . 78 Anion gap measurement may be of limited value in the presence of any alkalosis, especially in a combined acid base disorder. . 79 A metabolite of Naproxen, O-desmethylnaproxen, has been shown to interfere with the Jendrassik-Siletz method for measuring total bilirubin. Samples from patients who have taken Naproxen have shown spurious elevation in total bilirubin levels. 80 Because ethnic data is not always readily [...] 15-29 5 Kidney failure <15 (or dialysis) 81 CHOLESTEROL INTERPRETATION: Desirable: Less than 200 MG/DL Borderline-High Risk: 200-239 MG/DL High-Risk: 240 MG/DL and over 82 HDL INTERPRETATION: Undesirable: High Risk: Less than 40 MG/DL Desirable: Low Risk: Greater than 60 MG/DL 83 LDL INTERPRETATION: Low Risk Optimal Level: LDL Less than 100 MG/DL Near or Above Optimal: LDL 100-129 MG/DL Borderline High Risk: LDL 130-159 MG/DL High Risk: LDL 160-189 MG/DL Very High Risk: LDL Greater than 189 MG/DL 84 THERAPEUTIC TARGET FOR THE TREATMENT OF DIABETES MELLITUS PATIENTS IS <7% HBA1C, AND IN SELECTIVE PATIENTS <6.0%. PLEASE REFER TO [employer] DIABETIC CARE GUIDELINES FOR FURTHER INFORMATION. 85 Anion gap measurement may be of limited value in the presence of any alkalosis, especially in a combined acid base disorder. . 86 A metabolite of Naproxen, O-desmethylnaproxen, has been shown to interfere with the Jendrassik-Siletz method for measuring total bilirubin. Samples from patients who have taken Naproxen have shown spurious elevation in total bilirubin levels. 87 Because ethnic data is not always readily [...] 15-29 5 Kidney failure <15 (or dialysis) 88 CHOLESTEROL INTERPRETATION: Desirable: Less than 200 MG/DL Borderline-High Risk: 200-239 MG/DL High-Risk: 240 MG/DL and over 89 HDL INTERPRETATION: Undesirable: High Risk: Less than 40 MG/DL Desirable: Low Risk: Greater than 60 MG/DL 90 LDL INTERPRETATION: Low Risk Optimal Level: LDL Less than 100 MG/DL Near or Above Optimal: LDL 100-129 MG/DL Borderline High Risk: LDL 130-159 MG/DL High Risk: LDL 160-189 MG/DL Very High Risk: LDL Greater than 189 MG/DL 91 THERAPEUTIC TARGET FOR THE TREATMENT OF DIABETES MELLITUS PATIENTS IS <7% HBA1C, AND IN SELECTIVE PATIENTS <6.0%. PLEASE REFER TO [employer] DIABETIC CARE GUIDELINES FOR FURTHER INFORMATION. 92 THERAPEUTIC TARGET FOR THE TREATMENT OF DIABETES MELLITUS PATIENTS IS <7% HBA1C, AND IN SELECTIVE PATIENTS <6.0%. PLEASE REFER TO [employer] DIABETIC CARE GUIDELINES FOR FURTHER INFORMATION. 93 THERAPEUTIC TARGET FOR THE TREATMENT OF DIABETES MELLITUS PATIENTS IS <7% HBA1C, AND IN SELECTIVE PATIENTS <6.0%. PLEASE REFER TO [employer] DIABETIC CARE GUIDELINES FOR FURTHER [...] change was based on recommendations from the [place] [employer]. 99 Please note change in reference range effective 08 . 100 A metabolite of Naproxen, O-desmethylnaproxen, has been shown to interfere with the Jendrassik-Siletz method for measuring total bilirubin. Samples from [...] 15-29 5 Kidney failure <15 (or dialysis) 102 MICROALBUMINURIA IN A RANDOM SAMPLE IS DEFINED : MICROALBUMIN/CREATININE RATIO OF 30-299 ug/mg. . Procedures Date Code Description Status 04/19/2019 01820 EKG Tracing & Interpretation Completed 03/09/2019 [id number] Diabetic Retinal Eye Exam Completed 02/21/2018 [id number] Diabetic Retinal Eye Exam Completed 08/09/2017 71662 EKG Tracing & Interpretation Completed 07/19/2017 46150 Stress Test Completed 07/19/2017 95944 Myocardial Perfusion Imaging Tomographic (Spect) Completed Multiple Studies 02/22/2017 [id number] Diabetic Retinal Eye Exam Completed 06/09/2016 59182 ECHO Transthoracic, Real-Time 2D With Doppler And Completed Color Flow 02/20/2016 [id number] Diabetic Retinal Eye Exam Completed 02/18/2015 [id number] Diabetic Retinal Eye Exam Completed 09/12/2014 [id number] Colonoscopy Completed 07/10/2014 [id number] Mammogram Completed 04/04/2014 53396 ECHO Transthoracic, Real-Time 2D With Doppler And Completed Color Flow 04/01/2014 34608 Stress Test Completed 04/01/2014 50311 Myocardial Perfusion Imaging Tomographic (Spect) Completed Multiple Studies 04/01/2014 19976 Myocardial Perfusion Imaging Tomographic (Spect) Completed Multiple Studies 03/15/2014 84760 EKG Tracing & Interpretation Completed 02/15/2014 83466 EKG Tracing & Interpretation Completed 02/12/2014 [id number] Diabetic Retinal Eye Exam Completed 07/13/2012 [id number] Mammogram Completed 08/12/2011 [id number] Colonoscopy Completed 07/12/2011 [id number] Bone Mineral Density Test Completed 07/10/2010 [id number] Mammogram Completed 09/15/2009 09022 EKG Tracing & Interpretation Completed 08/30/2007 84392 EKG Tracing & Interpretation Completed 07/05/2006 57796 Holter Monitor Review (24 hr)dr review & interp only Completed 06/23/2006 50686 EKG Tracing & Interpretation Completed 06/23/2006 74946 EKG Tracing & Interpretation Completed 04/30/2004 [id number] Bone Mineral Density Test Completed Encounters Type Date Location Provider Dx Diagnosis Office Visit 04/19/2019 [facility] Internal Dai Osborn, E11.9 Type 2 diabetes 10:20a Medicine - Magan M.DRadhames mellitus without complications I10 Essential (primary) hypertension R60.0 Localized edema M79.674 Pain in right toe(s) I44.7 Left bundle-branch block, unspecified Office Visit 08/31/2018 Rheumatology Kannan M79.673 Pain in 2:00p Services Of Rayne Lassiter M.D. unspecified foot E79.0 Hyperuricemia w/o signs of inflam arthrit and tophaceous dis Office Visit 07/10/2018 10:20a [facility] Denise Lala E11.65 Type 2 diabetes Toshia Osborn M.D. mellitus with Ccmob hyperglycemia I10 Essential (primary) hypertension E03.9 Hypothyroidism, unspecified R60.0 Localized edema Z23 Encounter for immunization Office Visit 08/09/2017 Farzaneh Amor Z01.810 Encounter for 10:40a Cardiology Of DO Dany preprocedural [facility] cardiovascular examination E11.9 Type 2 diabetes mellitus without complications I12.9 Hypertensive chronic kidney disease w stg 1-4/unsp chr kdny E78.5 Hyperlipidemia, unspecified E66.8 Other obesity I25.10 Athscl heart disease of [place] coronary artery w/o ang pctrs N18.9 Chronic kidney disease, unspecified I44.7 Left bundle-branch block, unspecified M16.11 Unilateral primary osteoarthritis, right hip Office Visit 07/28/2017 [facility] Denise Lala Z01.810 En[facility] for 10:30[facility] M16.11 Unilateral primary osteoarthritis, right hip E11.65 Type 2 diabetes mellitus with hyperglycemia R94.39 Abnormal result of other cardiovascular function study N18.3 Chronic kidney disease, stage 3 (moderate) Office Visit 06/21/2017 1:00p [facility] Denise Osborn M25.551 Pain in right Medicine - Magan M.DRadhames hip E11.65 Type 2 diabetes mellitus with hyperglycemia R60.0 Localized edema Office Visit 04/22/2017 3:00p Orthopedic Services Erum Smith, M25.551 Pain in right Of C.M.A. M.D. hip M25.552 Pain in left hip M16.11 Unilateral primary osteoarthritis, right hip M16.12 Unilateral primary osteoarthritis, left hip Office Visit 04/18/2017 3:00p [facility] Internal Dai Z00.00 Encntr for Medicine Morgan Osborn M.D. general adult medical exam w/o abnormal findings E11.65 Type 2 diabetes mellitus with hyperglycemia I10 Essential (primary) hypertension E78.5 Hyperlipidemia, unspecified E03.9 Hypothyroidism, unspecified Z12.31 Encntr screen mammogram for malignant neoplasm of breast Office Visit 08/10/2016 10:40a [facility] Internal Dai E11.65 Type 2 diabetes Toshia Osborn M.D. mellitus with Ccmob hyperglycemia I10 Essential (primary) hypertension G47.00 Insomnia, unspecified Z23 Encounter for immunization N18.2 Chronic kidney disease, stage 2 (mild) Office Visit 05/10/2016 11:40a [facility] Internal Dai E11.9 Type 2 diabetes Toshia Osborn M.D. mellitus without Ccmob complications I10 Essential (primary) hypertension M25.559 Pain in unspecified hip R60.0 Localized edema Office Visit 02/20/2015 11:00a [facility] Internal Dai 250.00 Diabetes Mellitus Toshia Osborn M.D. W/O Compl Type II Ccmob Or Unspec Controlled 401.1 Hypertension Benign 244.8 Hypothyroidism Other Spec Office Visit 08/22/2014 10:20a [facility] Internal Dai V70.0 Examination Toshia Osborn M.D. General Medical Ccmob Routine AT Health Care Facility 250.00 Diabetes Mellitus W/O Compl Type II Or Unspec Controlled 401.1 Hypertension Benign 585.3 Chronic Kidney Disease Stage III Moderate 441.9 Aneurysm Aortic W/O Rupture Unspec Site V76.51 Special Screening For Malignant Neoplasms Colon Office Visit 05/21/2014 3:40p [facility] Internal Dai V72.84 Examination Toshia Osborn M.D. Preoperative Ccmob Unspec 366.04 Cataract Nuclear 401.1 Hypertension Benign 250.00 Diabetes Mellitus W/O Compl Type II Or Unspec Controlled Office Visit 04/17/2014 8:45a [facility] Mei Hutchinssher, 426.3 Left Bundle Of Icu Staff Nurse M.D. Branch Block Other 272.2 Hyperlipidemia Mixed 401.1 Hypertension Benign 424.0 Mitral Valve Disorder V72.81 Examination Preoperative Cardiovascular Office Visit 03/15/2014 2:45p [facility] Mei Russoer, 426.3 Left Bundle Of Icu Staff Nurse M.D. Branch Block Other 272.0 Hypercholesterolemia Pure 401.1 Hypertension Benign 250.00 Diabetes Mellitus W/O Compl Type II Or Unspec Controlled V17.49 Family HX Of Other Cardiovascular Diseases Office Visit 02/15/2014 11:00a [facility] Internal Dai V72.84 Examination Toshia Osborn M.D. Preoperative Ccmob Unspec 366.04 Cataract Nuclear 250.00 Diabetes Mellitus W/O Compl Type II Or Unspec Controlled 401.1 Hypertension Benign 585.3 Chronic Kidney Disease Stage III Moderate V76.10 Screening For Malignant Neoplasm Breast 426.3 Left Bundle Branch Block Other Office Visit 05/08/2013 1:20p [facility] Internal Dai 250.00 Diabetes Alyssa Osborn M.D. W/O Compl Type II Ccmob Or Unspec Controlled 401.1 Hypertension Benign 272.0 Hypercholesterolemia Pure 244.9 Hypothyroidism Other Unspec Office Visit 11/07/2012 1:20p [facility] Internal Dai 250.00 Diabetes Alyssa Osborn M.D. W/O Compl Type II Ccmob Or Unspec Controlled 401.1 Hypertension Benign 272.0 Hypercholesterolemia Pure Office Visit 07/06/2012 10:40a [facility] Internal Dai V70.0 Examination Toshia Osborn M.D. General Medical Ccmob Routine AT Health Care Facility 250.00 Diabetes Mellitus W/O Compl Type II Or Unspec Controlled 401.1 Hypertension Benign 272.0 Hypercholesterolemia Pure 244.9 Hypothyroidism Other Unspec V76.10 Screening For Malignant Neoplasm Breast V04.81 Need For Prophylactic Vaccination & Inoculation/Influenza Office Visit 05/23/2012 11:20a [facility] Internal Dai 250.00 Diabetes Mellitus Toshia Osborn M.D. W/O Compl Type II Ccmob Or Unspec Controlled 401.1 Hypertension Benign 272.0 Hypercholesterolemia Pure Office Visit 10/05/2011 DO Not Use Dai 250.00 Diabetes 10:40a Rayne-Flo Osborn M.D. 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 Examination 250.00 Diabetes [...] Controlled Office Visit 07/13/2006 DO Not Use Radbhavik, 427.9 Cardiac 8:45a Caryl Reyes M.D. Dysrhythmia Unspec 401.1 Hypertension Benign 244.9 Hypothyroidism Other Unspec 790.21 Impaired Fasting Glucose Office Visit 06/23/2006 DO Not Use Radbhavik, V70.0 Examination 9:45a Caryl Reyes M.D. General Medical Routine AT Health Care Facility 250.00 Diabetes Mellitus W/O Compl Type II Or Unspec Controlled 794.31 Electrocardiogram (ECG) (EKG) Abnormal 401.1 Hypertension Benign Office Visit 05/16/2006 DO Not Use Robert, 401.1 Hypertension 8:30a [facility]-Flo Reyes M.D. Benign 244.9 Hypothyroidism Other Unspec 250.00 Diabetes Mellitus W/O Compl Type II Or Unspec Controlled 272.0 Hypercholesterolemia Pure Plan of Treatment Future Appointment(s):05/09/2019 11:50 am - Kae Sotelo M.D. at [facility] am - Dai Osborn M.D. at [facility] - Kae Sotelo M.D.L03.011 Cellulitis of right fingerNew Medication:Amoxicillin/Clavulanate Potassium 875-125 mg - 1 tab by mouth twice a dayComments:take antihistamine ( claritin /zyrtec or naomi ) once a day to help with swelling of the finger Stop keflex and start augmentin that I have sent for youFollow up:1 week with meZ23 Encounter for immunization
--- NOTE | 2019-05-05 16:45 | ED ---
Lower Extremity - HPI Summary HPI Summary: Patient is a 79 y old F presenting to [facility] accompanied by two female family members with a chief complaint of left ankle pain and swelling since last night (05/04/19) with a rated severity of 9/10 making it hard to stand. Symptoms alleviated by nothing. Symptoms aggravated by movement and weight bearing. Patient denies recent injuries, left calf pain, fever, shortness of breath, chest pain. Patient states she has chronic swelling in both lower extremities. Patient states that she was bitten on her right hand last week and was seen at [facility] after which she was discharged with antibiotics. Patient reports that there is a white spot on her right thumb that started as a pinprick which has been growing. Patient was seen at [facility] 3 days ago after which she was discharged with more antibiotics. Nurse reports that patient does not have hx of congestive heart failure, has a valve problem that is not pushing fluid out of her legs, and her manual cups dont work but her blood pressure is 182/90. - History of Current Complaint Chief Complaint: EDExtremityLower Stated Complaint: PAIN IN LEFT ANKLE/SWOLLEN PER PT Time Seen by Provider: 05/05/19 16:31 Hx Obtained From: Patient Onset of Pain: Hours - Last night (05/04/19) Onset/Duration: Still Present Severity Currently: Severe Pain Intensity: 9 Pain Scale Used: 0-10 Numeric Timing: Constant Location: Is Discrete @ - left ankle Associated Signs And Symptoms: Positive: Negative - left calf pain, fever, shortness of breath, chest pain Aggravating Factor(s): Standing, Weight Bearing Alleviating Factor(s): Nothing Able to Bear Weight: No - Allergies/Home Medications Allergies/Adverse Reactions: Allergies Allergy/AdvReac Type Severity Reaction Status Date / Time metformin AdvReac GI Upset Verified 05/05/19 16:26 PMH/Surg Hx/FS Hx/Imm Hx Previously Healthy: No Endocrine/Hematology History: Reports: Hx Diabetes, Hx Thyroid Disease Denies: Hx Anticoagulant Therapy Cardiovascular History: Reports: Hx Hypertension, Hx Rheumatic Fever - AGE 12 Respiratory History: Denies: Other Respiratory Problems/Disorders Musculoskeletal History: Reports: Hx Arthritis - RIGHT HIP AND FOOT Sensory History: Reports: Hx Cataracts - ISAEL, Hx Contacts or Glasses - GLASSES Denies: Hx Hearing Aid Opthamlomology History: Reports: Hx Cataracts - ISAEL, Hx Contacts or Glasses - GLASSES - Cancer History Hx Chemotherapy: No Hx Radiation Therapy: No - Surgical History Surgery Procedure, Year, and Place: TONSILECTOMY A CHILD 1952, [facility]. TUBAL LIGATION, 1979, [facility] [place]. RIGHT HIP REPLACEMENT--07/2017 Hx Anesthesia Reactions: No Infectious Disease History: No Infectious Disease History: Denies: Traveled Outside the [place] in Last 30 Days - Family History Known Family History: Positive: Hypertension - Social History Alcohol Use: Occasionally Alcohol Amount: SOCIAL Hx Substance Use: No Substance Use Type: Reports: None Hx Tobacco Use: No Smoking Status (MU): Never Smoked Tobacco Have You Smoked in the Last Year: No Review of Systems Negative: Fever Negative: Chest Pain Negative: Shortness Of Breath Musculoskeletal: Negative - left calf pain Positive: Other - left ankle pain and swelling All Other Systems Reviewed And Are Negative: Yes Physical Exam - Summary Physical Exam Summary: VITAL SIGNS: Reviewed. GENERAL: Patient is a well-developed and nourished FEMALE who is lying comfortable in the stretcher. Patient is not in any acute respiratory distress. HEAD AND FACE: No signs of trauma. No ecchymosis, hematomas or skull depressions. No sinus tenderness. EYES: PERRLA, EOMI x 2, No injected conjunctiva, no nystagmus. EARS: Hearing grossly intact. Ear canals and tympanic membranes are within normal limits. MOUTH: Oropharynx within normal limits. NECK: Supple, trachea is midline, no adenopathy, no JVD, no carotid bruit, no c- spine tenderness, neck with full ROM. CHEST: Symmetric, no tenderness at palpation. LUNGS: Clear to auscultation bilaterally. No wheezing or crackles. CVS: Regular rate and rhythm, S1 and S2 present, no murmurs or gallops appreciated. ABDOMEN: Soft, non-tender. No signs of distention. No rebound, no guarding, and no masses palpated. Bowel sounds are normal. EXTREMITIES: Bilateral lower extremity edema, left ankle worse than right. NEURO: Alert and oriented x 3. No acute neurological deficits. Speech is normal and follows commands. SKIN: Dry and warm. Triage Information Reviewed: Yes Vital Signs On Initial Exam: Initial Vitals Temp Pulse Resp BP Pulse Ox 99.4 F 83 18 197/102 98 05/05/19 16:23 05/05/19 16:23 05/05/19 16:23 05/05/19 16:23 05/05/19 16:23 Vital Signs Reviewed: Yes Procedures - Incision and Drainage Right Hand Site: I&D in the right thumb, no complications, cultures were sent to the lab Diagnostics - Vital Signs Vital Signs Temp Pulse Resp BP Pulse Ox 05/05/19 16:23 99.4 F 83 18 197/102 98 - Laboratory Result Diagrams: 05/05/19 17:35 05/05/19 17:35 Lab Statement: Any lab studies that have been ordered have been reviewed, and results considered in the medical decision making process. - Radiology Left ankle x-ray Radiology Interpretation Completed By: Radiologist Summary of Radiographic Findings: 1. Severe soft tissue swelling most marked over the dorsum of the forefoot. No conspicuous foreign body or subcutaneous emphysema. Correlate for cellulitis or systemic etiology. 2. Negative for fracture or articular malalignment at the ankle or foot. 3. Negative for suspicious periosteal reaction or osteolysis to suggest osteomyelitis. 4. Polyarticular mild osteoarthritis. Achilles tendon and plantar fascia calcaneal enthesophytes. ED physician has reviewed this report. Left foot x-ray Radiology Interpretation Completed By: Radiologist Summary of Radiographic Findings: 1. Severe soft tissue swelling most marked over the dorsum of the forefoot. No conspicuous foreign body or subcutaneous emphysema. Correlate for cellulitis or systemic etiology. 2. Negative for fracture or articular malalignment at the ankle or foot. 3. Negative for suspicious periosteal reaction or osteolysis to suggest osteomyelitis. 4. Polyarticular mild osteoarthritis. Achilles tendon and plantar fascia calcaneal enthesophytes. ED physician has reviewed this report. - Additional Comments Diagnostic Additional Comments: Venous Doppler shows, per radiologist: No documented DVT. There is limited visualization of the calf veins. ED physician has reviewed this report. Re-Evaluation - Re-Evaluation First Eval Re-Evaluation Time: 19:31 Comment: I&D of right thumb-no complications. Cultures went to lab. Discussed discharge. Patient is agreeable to discharge plan. Lower Extremity Course/Dx - Course Assessment/Plan: Patient is a 79 y old F presenting to [facility] accompanied by two female family members with a chief complaint of left ankle pain and swelling since last night (05/04/19) with a rated severity of 9/10 making it hard to stand. Symptoms alleviated by nothing. Symptoms aggravated by movement and weight bearing. Patient denies recent injuries, left calf pain, fever, shortness of breath, chest pain. Patient states she has chronic swelling in both lower extremities. Patient states that she was bitten on her right hand last week and was seen at [facility] after which she was discharged with antibiotics. Patient reports that there is a white spot on her right thumb that started as a pinprick which has been growing. Patient was seen at [facility] 3 days ago after which she was discharged with more antibiotics. Nurse reports that patient does not have hx of congestive heart failure, has a valve problem that is not pushing fluid out of her legs, and her manual cups dont work but her blood pressure is 182/90. Blood work without any significant normality except for ESR of 73, BUN is 27, creatinine 105, glucose 170, uric acid is 8.6, and CRP of 76.4. Since the patient has a severe pain in the left ankle, swelling and some redness in the left ankle, and the uric acid is elevated, the patient is probably having an episode of gout. Therefore, the patient was given 1 dose of Toradol. X-ray of the foot and ankle impression: 1. Severe soft tissue swelling most marked over the dorsum of the forefoot. No conspicuous foreign body or subcutaneous emphysema. Correlate for cellulitis or systemic etiology. 2. Negative for fracture or articular malalignment at the ankle or foot. 3. Negative for suspicious periosteal reaction or osteolysis to suggest osteomyelitis. 4. Polyarticular mild osteoarthritis. Achilles tendon and plantar fascia calcaneal enthesophytes. LLE U/S impression: No DVT. Therefore I believe that the patient has either gout versus slight cellulitis. Therefore the patient was given 1 dose of Toradol and Rocephin. The patient will be discharged home with follow-up with primary care physician. She was recommended to use compression stockings, elevate the feet at all times, continue taking Augmentin and ibuprofen for the pain. I also performed an I&D of the left thumb. There was no complications. - Diagnoses Provider Diagnoses: Bilateral lower extremity edema, Cellulitis of right hand, Gout Discharge - Sign-Out/Discharge Documenting (check all that apply): Patient Departure - Discharge Patient Received Moderate/Deep Sedation with Procedure: No - Discharge Plan Condition: Stable Disposition: HOME Patient Education Materials: Cellulitis (ED), Gout (ED), Leg Edema (ED) Referrals: Dai Osborn MD [Primary Care Provider] - 3 Days Additional Instructions: Follow up with your primary care provider in 3 days. Return to the Emergency Department for new or worsening symptoms. - Billing Disposition and Condition Condition: STABLE Disposition: Home - Attestation Statements Document Initiated by Scribe: Yes Documenting Scribe: Adilene Tamayo Provider For Whom Urszulaibe is Documenting (Include Credential): Brett Gonzales MD Scribe Attestation: IBrina Alison Kim, scribed for Brett Gonzales MD on 05/07/19 at 2013. Scribe Documentation Reviewed: Yes Provider Attestation: The documentation as recorded by the urszulaibcharline, Adilene Tamayo accurately reflects the service I personally performed and the decisions made by Brett xavier MD Status of Scribe Document: Viewed
[2019-05-05 17:45] LABS: ABS Basophils 0.1 10^3/ul (0-0.2); ABS Eosinophils 0.2 10^3/ul (0-0.6); ABS Lymphocytes 1.5 10^3/ul (1.0-4.8); ABS Monocytes 0.9 10^3/ul (0-0.8); ABS Neutrophils 5.9 10^3/ul (1.5-7.7); Eosinophil % 2.8 %; Hematocrit 35 % (35-47); Hemoglobin 11.7 g/dL (12.0-16.0); Lymphocyte % 17.5 %; Mean Corpuscular HGB Conc 33 g/dL (31-36); Mean Corpuscular Hemoglobin 31 pg (27-31); Mean Corpuscular Volume 92 fL (80-97); Mean Platelet Volume 7.4 fL (7.4-10.4); Platelet Count 301 10^3/uL (150-450); Red Blood Count 3.83 10^6 /uL (3.70-4.87); Red Cell Distribution Width 14 % (10-15); White Blood Count 8.7 10^3/uL (3.5-10.8)
[2019-05-05 17:58] LABS: Albumin 3.9 g/dL (3.2-5.2); Albumin/Globulin Ratio 1.1 (1-3); BUN/Creatinine Ratio 25.7 (8-20); C Reactive Protein 76.4 mg/L (<8.01); EGFR African American 61.2 (>60); EGFR Non-African American 50.6 (>60); Globulin 3.4 g/dL (2-4); Total Bilirubin 0.5 mg/dL (0.2-1.0); Total Protein 7.3 g/dL (6.4-8.9); Uric Acid 8.6 mg/dL (2.3-6.6)
[2019-05-05 18:53] LABS: Erythrocyte Sed Rate 73 mm/Hr (0-29)
[2019-05-05] MEDS ORDERED: cefTRIAXone(*) 1 GM in NS 0.9% 50 ML* 50 ML IVPB ONE (19:18)
[2019-05-05] MEDS ORDERED: Ketorolac INJ* 30 MG/ML 1 ML VIAL IV PUSH ONE (19:19)
[2019-05-05] MEDS ORDERED: Bacitracin OINTMENT* 0.5% 0.5 oz TUBE ONE (19:48)
[2019-05-05] MEDS ORDERED: Bacitracin OINTMENT* 0.5% 0.5 oz TUBE TOPICAL ONE (19:52)
[2019-05-05 20:29] VITALS: BP 178/88
== END 2019-05-05 20:27 | disposition home or self-care (01) ==
LOC: ED 16:20
DX: L03.113 Cellulitis of right upper limb (principal); M10.9 Gout, unspecified; R60.0 Localized edema; E11.9 Type 2 diabetes mellitus without complications; I10 Essential (primary) hypertension; E07.9 Disorder of thyroid, unspecified; Z88.8 Allergy status to other drugs, medicaments and biological substances
CPT/HCPCS: 10060; 36415; 80053; 83605; 84550; 85025; 85652; 86140; 87040; 87070; 87205; 96365; 96375; 99282; A9270-GY; J0696; J1885